=== PATIENT | female | born 1955 | race American Indian/Alaskan Native ===

== ENCOUNTER → 2016-09-06 | Outpatient (CLI) | payer MEDICAID ==
[~2016-09-06] MED LIST: ALBU17AE23 IH; ALPR.5T PO; ALPR0.5T22 PO; AMLO5TAB2 PO; ASP81CT PO; ASPI-9 PO; CEFU250T11 PO; CIME200T86 PO; CYCL10TA9 PO; DILT180C PO; DIPH25TA82 PO; HERB IH; HYDR-3720 PO; IBUP-15 PO; LANS30CA PO; NITR12SP6 TL; NITROGLYCERIN BU; SIMV20TA3 PO
--- OUTSIDE RECORDS SUMMARY | 2016-09-06 12:24 | XMS REPORT | Continuity of Care Document ---
Author Author [facility] Organization [facility] Address Unknown Phone Unavailable Care Team Providers Care Newspaper Subscription Solicitor Name Role Phone Virgilio Judd PCP [phone] Source Comments Some departments are not documenting in the electronic medical record. If you do not see the information that you expected, contact Release of Information in the Health Information Management department at [phone] for further assistance in locating additional records.[facility] Active Allergies and Adverse Reactions Allergen Noted Date Severity Reactions Comments Demerol 09/02/2010 UNKNOWN Grapefruit 07/02/2012 UNKNOWN Penicillins 09/02/2010 UNKNOWN Tetanus Vaccines And 09/02/2010 UNKNOWN Toxoid Current Medications Prescription Sig. Disp. Refills Start End Date Status Date gabapentin (NEURONTIN) Take 300 mg by mouth Active 300 mg PO tablet daily. gabapentin (NEURONTIN) Take 200 mg by mouth. Active 100 mg PO tablet alprazolam (XANAX) 0.5 mg Take 0.5 mg by mouth at Active PO tablet bedtime as needed. SULFAMETHOXAZOLE/TRIMETHO Take by mouth. Active PRIM (BACTRIM PO) Aspirin 81 mg PO Tab Take by mouth. Active nitroglycerin Take 1 [place] by mouth Active (NITROLINGUAL) 0.4 every 5 minutes as mg/dose TL translingual needed. spray CYCLOBENZAPRINE HCL Take by mouth. Active (FLEXERIL PO) albuterol (VENTOLIN HFA, Inhale 2 Puffs by mouth Active PROAIR HFA) 90 every 6 hours as needed. mcg/actuation inhaler Active Problems Not on file Social History Tobacco Use Types Packs/Day Years Used Date Current Every Day Smoker Cigarettes 0.3 Alcohol Use Drinks/Week oz/Week Comments Yes RARELY Last Filed Vital Signs Vital Sign Reading Time Taken Blood Pressure 120/80 10/15/2009 11:52 AM CDT Pulse 80 10/15/2009 11:52 AM CDT Temperature 36.7 C (98.1 F) 10/05/2009 11:53 AM CDT Respiratory Rate 16 10/05/2009 11:53 AM CDT Height 1.6 m (5' 3") 10/15/2009 11:52 AM CDT Weight 72.122 kg (159 lb) 10/15/2009 11:52 AM CDT Body Mass Index 28.17 10/15/2009 11:52 AM CDT Oxygen Saturation - - Plan of Care Health Maintenance Due Date Last Done Comments Physical (Comprehensive) 1963 Exam Pertussis Vaccine 1967 Tetanus Vaccine 1973 Cervical Cancer Screening 1977 Breast Cancer Screening 1996 Colorectal Cancer 2006 Screening Influenza Vaccine 03/03/2016 Results from Last 3 Months Not on file
[2016-09-06 14:03] LABS: BASOPHILS # (AUTO) 0.1 10^3/uL (0.0-0.1); BASOPHILS % (AUTO) 1 % (0-10); EOSINOPHILS # (AUTO) 0.1 10^3/uL (0.0-0.3); EOSINOPHILS % (AUTO) 2 % (0-10); LYMPHOCYTES # (AUTO) 3.2 X 10^3 (1.0-4.0); LYMPHOCYTES % (AUTO) 43 % (12-44); MEAN CORPUSCULAR HEMOGLOBIN 33 PG (25-34); MEAN CORPUSCULAR HGB CONC 35 G/DL (32-36); MEAN CORPUSCULAR VOLUME 96 FL (80-99); MONOCYTES # (AUTO) 0.4 X 10^3 (0.0-1.0); MONOCYTES % (AUTO) 6 % (0-12); NEUTROPHILS # (AUTO) 3.6 X 10^3 (1.8-7.8); NEUTROPHILS % (AUTO) 49 % (42-75); PLATELET COUNT 148 10^3/uL (130-400); RED BLOOD COUNT 4.98 10^6/uL (4.35-5.85); RED CELL DISTRIBUTION WIDTH 13.4 % (10.0-14.5); WHITE BLOOD COUNT 7.4 10^3/uL (4.3-11.0)
[2016-09-06 14:20] LABS: ALANINE AMINOTRANSFERASE 12 U/L (0-55); ANION GAP 9 MMOL/L (5-14); ASPARTATE AMINO TRANSFERASE 14 U/L (5-34); BILIRUBIN,TOTAL 0.4 MG/DL (0.1-1.0); BLOOD UREA NITROGEN 6 MG/DL (7-18); BUN/CREATININE RATIO 9; CALCIUM 9.1 MG/DL (8.5-10.1); CARBON DIOXIDE 27 MMOL/L (21-32); CHLORIDE 106 MMOL/L (98-107); CREATININE SERUM 0.68 MG/DL (0.60-1.30); GFR ESTIMATED > 60; GLUCOSE 80 MG/DL (70-105); MAGNESIUM 2.1 MG/DL (1.8-2.4); POTASSIUM 3.7 MMOL/L (3.6-5.0); SODIUM 142 MMOL/L (135-145); TOTAL PROTEIN 6.8 G/DL (6.4-8.2)
[2016-09-06 14:21] LABS: ERYTHROCYTE SEDIMENTATION RATE 9 MM/HR (0-30)
[2016-09-06 14:39] LABS: THYROID STIMULATING HORMONE 1.74 UIU/ML (0.35-4.94)
== END ==
LOC: RAD 12:21
PROVIDERS: ATTEND Internal Medicine Cardiovascular Disease
DX: R07.89 Other chest pain (principal); I25.10 Atherosclerotic heart disease of native coronary artery without angina pectoris; G89.29 Other chronic pain; J43.8 Other emphysema; E78.4 Other hyperlipidemia; I10 Essential (primary) hypertension; Z72.0 Tobacco use; R26.89 Other abnormalities of gait and mobility
CPT/HCPCS: 36415; 80053; 83735; 84443; 85025; 85652; 93923

== ENCOUNTER → 2018-05-21 | Outpatient (CLI) | payer MEDICAID | LOC: CARD 10:22 | PROVIDERS: ATTEND Internal Medicine Cardiovascular Disease | DX: R07.89 Other chest pain (principal); R06.02 Shortness of breath; R00.2 Palpitations; I25.10 Atherosclerotic heart disease of native coronary artery without angina pectoris; E78.5 Hyperlipidemia, unspecified; I10 Essential (primary) hypertension; Z72.0 Tobacco use | CPT/HCPCS: 93306 ==

== ENCOUNTER 2018-07-10 07:13 | Day surgery (SDC) | payer MEDICAID ==
[2018-07-10] VITALS (10 sets, daily range): BP systolic 129–149; BP diastolic 63–84
[~2018-07-10] VITALS: Ht 160 cm; Wt 73.9 kg
[2018-07-10] MEDS ORDERED: LIDOCAINE 1% INJ 20 ML 20 ML VIAL ONE (07:19)
[2018-07-10] MEDS ORDERED: HEParin (CATH LAB) 2,000 ML IV ONE (07:19)
[2018-07-10] MEDS ORDERED: NS IV 1000 ML 1,000 ML ONE (07:19)
[2018-07-10] MEDS ORDERED: NS IV 1000 ML 1,000 ML IV SCH (07:30)
[2018-07-10 07:47] LABS: HEMOGLOBIN 16.6 G/DL (11.5-16.0); RED BLOOD COUNT 5.04 10^6/uL (4.35-5.85); RED CELL DISTRIBUTION WIDTH 13.1 % (10.0-14.5)
[2018-07-10] MEDS ORDERED: PRD20T PO (07:47)
[2018-07-10] MEDS ORDERED: FLU QUADRIvalent (5+ YOA) 2018-2019 (AFLURIA) 0.5 ML IM ONE (08:00)
[2018-07-10 08:03] LABS: INR 0.9 (0.8-1.4); PROTHROMBIN TIME PATIENT 11.9 SEC (12.2-14.7)
[2018-07-10 08:08] LABS: ALANINE AMINOTRANSFERASE 16 U/L (0-55); ALBUMIN 4.3 GM/DL (3.2-4.5); ALKALINE PHOSPHATASE 123 U/L (40-136); BILIRUBIN,TOTAL 0.3 MG/DL (0.1-1.0); BUN/CREATININE RATIO 13; CALCIUM 9.4 MG/DL (8.5-10.1); CARBON DIOXIDE 25 MMOL/L (21-32); CHLORIDE 105 MMOL/L (98-107); CHOLESTEROL 208 MG/DL (< 200); CREATININE SERUM 0.69 MG/DL (0.60-1.30); GFR ESTIMATED > 60; GLUCOSE 115 MG/DL (70-105); HDL CHOLESTEROL 56 MG/DL (40-60); POTASSIUM 3.8 MMOL/L (3.6-5.0); SODIUM 140 MMOL/L (135-145); TOTAL PROTEIN 7.2 GM/DL (6.4-8.2); TRIGLYCERIDES 106 MG/DL (<150); VLDL CHOLESTEROL 21 MG/DL (5-40)
[2018-07-10] MEDS ORDERED: MIDAZOLAM 5 MG/5 ML (VERSED) VIAL ONE (08:19)
[2018-07-10] MEDS ORDERED: diphenhydrAMINE 50 MG/ML INJ (BENADRYL) ONE (08:20)
[2018-07-10] MEDS ORDERED: fentaNYL INJECTION 100 MCG/2 ML AMP ONE (08:20)
[2018-07-10] MEDS ORDERED: HEParin 1000 UNIT/ML (10ML VIAL) FOR BOLUS ONE (09:10)
[2018-07-10] MEDS ORDERED: NITRO DRIP 25000 MCG/D5W 0 ML IV ONE (09:10)
[2018-07-10] MEDS ORDERED: ADENOSINE 3 MG/1 ML (ADENOSCAN) 30ML VIAL IV ONE (09:10)
[2018-07-10] MEDS ORDERED: CLOPIDOGREL 300 MG (PLAVIX) TABLET PO ONE (09:44)
[2018-07-10] MEDS ORDERED: ASPIRIN 81 MG CHEW (CHILDREN'S ASA) ONE (09:44)
--- NOTE | 2018-07-10 10:43 | Cardiac Procedure Note-CS/ASA ---
Pre-Procedure Note Pre-Op Procedure Note H&P Reviewed The H&P was reviewed, patient examined and no changes noted. Date H&P Reviewed: Jul 10, 2018 Time H&P Reviewed: 08:45 Conscious Sedation Pre-Proced Time 08:45 ASA Score 3 For ASA 3 and 4: Consider anesthesia and medical clearance. Also, for patients with a history of failed moderate sedation consider anesthesia. Airway Lungs Heart ASA score ASA 1: a normal healthy patient ASA 2: a patient with a mild systemic disease (mid diabetes, controlled hypertension, obesity ASA 3: a patient with a severe systemic disease that limits activity (angina , COPD, prior Myocardial infarction) ASA 4: a patient with an incapacitating disease that is a constant threat to life (CHF, renal failure) ASA 5: a moribund patient not expected to survive 24 hrs. (ruptured aneurysm) ASA 6: a declared brain patient whose organs are being harvested. For emergent operations, add the letter E after the classification Mallampati Classification Grade 2 Sedation Plan Analgesia, Amnesia, Plan communicated to team members, Discussed options with patient/fam, Discussed risks with patient/fam The patient is an appropriate candidate to undergo the planned procedure, sedation, and anesthesia. The patient immediately re-assessed prior to indication. BETZY AL MD FACP FAC CCDS Jul 10, 2018 10:42
[2018-07-10] MEDS ORDERED: ALBUTEROL IH PRN (10:45)
[2018-07-10] MEDS ORDERED: diphenhydrAMINE 25 MG TAB (BENADRYL) PO PRN (10:45)
[2018-07-10] MEDS ORDERED: NITROGLYCERIN TL PRN (10:45)
[2018-07-10] MEDS ORDERED: PATIENT MAY USE OWN MEDS, ALL PO SCH (10:45)
[2018-07-10] MEDS ORDERED: CYCLOBENZAPRINE 10 MG (FLEXERIL) TAB PO PRN (10:45)
[2018-07-10] MEDS ORDERED: RT-ALBUTEROL SULF 2.5 MG/3 ML PRE-MIX VIAL IH PRN (11:15)
[2018-07-10] MEDS ORDERED: NITROGLYCERIN 0.4 MG SL TABS BTL 25'S SL PRN (11:15)
--- NOTE | 2018-07-10 11:21 | CARDIAC CATHETERIZATION ---
DATE OF SERVICE: 07/10/2018 CARDIAC CATHETERIZATION AND CORONARY INTERVENTION REPORT Rod Qiu 63-year-old lady, who has multiple coronary artery disease risk factors and recent symptoms suggestive of exertional angina. Symptoms have been progressive. Cardiac catheterization was carried out today after having obtained an informed consent. She was premedicated with steroids because of a history of contrast allergy. PROCEDURE: She was brought to the cardiac catheterization laboratory in a fasting state. Right groin was prepared and draped in the usual sterile fashion. Lidocaine 1% local anesthesia was usedd. Modified Seldinger technique was used to advance a 5-Panamanian sheath into the right femoral artery. A 5-Panamanian JL4 catheter was used for left coronary angiography. A 5-Panamanian JR4 catheter was used for right coronary angiography. A 5-Panamanian pigtail catheter was used for left heart catheterization and left ventricular angiography. FRACTIONAL FLOW RESERVE MEASUREMENT IN THE RIGHT CORONARY ARTERY: The right coronary artery was demonstrating 60% to 70% proximal stenosis. We carried out fractional flow reserve measurement to determine if this was hemodynamically significant. We exchanged the sheath over a wire for a 6-Panamanian sheath. We used a 6-Panamanian JR4 guide catheter with side holes. We used a Pressure Wire X. As we advanced the wire, it went out through one of the side holes, rather than the end hole. On trying to pull it back, the wire fractured. However, the fractured end of the wire remained firmly seated in the side hole and did not migrate. We were able to remove the whole apparatus, including all of the catheter and all of the wire. There was no distal embolization of the wire seen. We then used a 6-Panamanian JR4 guide catheter and a new Pressure Wire X, which we were able to advance through the end hole. Pressures were equalized. The pressure wire was then pulled back into the catheter and the catheter engaged the right coronary artery and the wire then was advanced across the lesion and the tip placed in the distal vessel. We gave adenosine 140 mcg per kilogram per minute for approximately 1 minute and 45 seconds. Fractional flow reserve was measured at 0.79, indicating that the stenosis was hemodynamically significant. The patient received 5000 units of intravenous heparin at the beginning of the fractional flow reserve measurement procedure. We kept the wire to carry out percutaneous intervention as described below. PERCUTANEOUS INTERVENTION TO THE RIGHT CORONARY ARTERY: We used a 6-Panamanian JR4 guide catheter with side holes that was already in place and Pressure Wire X, which was already in place. We had given 5000 units of intravenous heparin shortly before the interventional procedure. We advanced Xience Meme 3.5 x 12 mm stent to the lesion. This was carefully positioned to cover the entire lesion and the stent was deployed at 16 atmospheres, achieving a final stent lumen size of approximately 3.7 mm. Subsequent angiography revealed 0% residual stenosis at the previous site of approximately 70% stenosis and flow throughout the vessel was normal. The patient tolerated the procedure well. Angioplasty equipment was removed and angiography of the right femoral artery was carried out through the sheath. Mynx was used to achieve hemostasis. HEMODYNAMICS: Left ventricular end-diastolic pressure following coronary angiography was 14 mmHg. There was no significant pressure gradient on pullback across the aortic valve. Ascending aortic pressure was 129/74 with a mean of 100 mmHg. LEFT VENTRICULAR ANGIOGRAPHY: Left ventricular angiography was carried out in the right anterior oblique projection. Global left ventricular systolic function is normal. Left ventricular ejection fraction is 60% to 65%. There does not appear to be a significant mitral regurgitation. CORONARY ANGIOGRAPHY: Left main coronary artery: Left main coronary artery is free of significant disease. Left anterior descending artery has diffuse mild plaques. Left circumflex artery has diffuse mild plaques. Right coronary artery is dominant and had approximately 70% proximal stenosis and a fractional flow reserve across that was 0.79, indicating hemodynamic significance. Stenosis was stented with a Xience Meme 3.5 x 12 mm stent reducing the stenosis to 0% residual. CONCLUSIONS: 1. Coronary artery disease primarily consisting of 70% proximal stenosis of the right coronary artery with a fractional flow reserve of 0.79. This was successfully stented with a Xience Meme 3.5 x 12 mm stent. The rest of the coronary vessels have diffuse mild plaques. 2. Normal global left ventricular systolic function with ejection fraction of 60% to 65%. 3. No significant mitral regurgitation. 4. Mild elevation of left ventricular end-diastolic pressure. DISCUSSION AND RECOMMENDATIONS: We have advised her to refrain from tobacco or marijuana use. We have advised risk factor modification. Dual antiplatelet therapy is being continued. She is being hospitalized for overnight observation. Job ID: [id number] DocumentID: [id number] Dictated Date: 07/10/2018 09:59:27 Correction Warden Date: 07/10/2018 11:20:48 Dictated By: BETZY AL MD, MA, FACP, FACC, [facility]
[2018-07-10] MEDS: NS IV 1000 ML 1,000 ML IV SCH ×2 (13:47→22:33)
[2018-07-10] MEDS: ALPRAZolam 0.5 MG (XANAX) TAB PO PRN (20:18)
[2018-07-10] MEDS ORDERED: SIMvastatin 20 MG (ZOCOR) TAB PO SCH (21:00)
[2018-07-10] MEDS ORDERED: NON-FORMULARY MEDICATION 1 EA EA (Simvastatin 20 MG) PO SCH (21:00)
[2018-07-11] VITALS: BP 136/64
[2018-07-11] MEDS: ALPRAZolam 0.5 MG (XANAX) TAB PO PRN (01:15)
[2018-07-11 03:46] VITALS: BP 134/76
[2018-07-11 04:21] LABS: HEMOGLOBIN 13.9 G/DL (11.5-16.0); MEAN PLATELET VOLUME 11.4 FL (7.4-10.4); RED BLOOD COUNT 4.27 10^6/uL (4.35-5.85); RED CELL DISTRIBUTION WIDTH 12.6 % (10.0-14.5); WHITE BLOOD COUNT 9.2 10^3/uL (4.3-11.0)
[2018-07-11 04:44] LABS: BUN/CREATININE RATIO 17; CALCIUM 8.5 MG/DL (8.5-10.1); CARBON DIOXIDE 21 MMOL/L (21-32); CHLORIDE 108 MMOL/L (98-107); CREATININE SERUM 0.64 MG/DL (0.60-1.30); GFR ESTIMATED > 60; GLUCOSE 118 MG/DL (70-105); POTASSIUM 3.5 MMOL/L (3.6-5.0); SODIUM 139 MMOL/L (135-145)
[2018-07-11] MEDS: NS IV 1000 ML 1,000 ML IV SCH (05:54)
[2018-07-11] MEDS ORDERED: KCL 20 MEQ TAB (K-DUR) PO ONE (08:15)
[2018-07-11] MEDS ORDERED: CLOP75TA28 PO (08:19)
[2018-07-11] MEDS ORDERED: ASPI-999 PO (08:19)
--- NOTE | 2018-07-11 08:20 | Discharge Inst-Cardiology ---
Discharge Inst-Cardiac Discharge Medications New Medications: Aspirin (Aspirin) 81 Mg Tab.chew 81 MG PO DAILY for 90 Days, #90 TAB 3 Refills Clopidogrel Bisulfate (Clopidogrel) 75 Mg Tablet 75 MG PO DAILY for 90 Days, #90 TAB 3 Refills Continued Medications: Albuterol (Ventolin) 17 Gm Aerosol 2 PUFF IH QID PRN NEEDED FOR SHORTNESS OF BREATH Alprazolam (Xanax) 0.5 Mg Tablet 0.5 MG PO TID PRN NEEDED FOR ANXIETY Amlodipine Besylate (Amlodipine Besylate) 5 Mg Tablet 5 MG PO DAILY Cyclobenzaprine Hcl (Cyclobenzaprine Hcl) 10 Mg Tablet 10 MG PO TID PRN NEEDED FOR MUSCLE SPASMS Diphenhydramine Hcl (Diphenhydramine 25 Mg) 25 Mg Tablet 25 MG PO BID PRN NEEDED FOR RASH Nitroglycerin (Nitroglycerin) 12 Gm [place] 1 - 2 SPRAYS TL UD PRN 1-2 sprays onto or under tongue every 3-5 minutes for maximum of 3 doses in 15 minutes NEEDED FOR CHEST PAIN Simvastatin (Simvastatin) 20 Mg Tablet 20 MG PO HS Discontinued Medications: Aspirin (Baby Aspirin Chewable Tablet) 81 Mg Chew 81 MG PO EVERY OTHER DAY Prednisone (Prednisone) 20 Mg Tab 20 MG PO DAILY, #22 TAB Take 3 tabs(60mg)daily,decrease by 1/2 tab(10mg)every other day. BETZY AL MD FACP FAC CCDS Jul 11, 2018 08:20
--- NOTE | 2018-07-11 08:21 | Discharge Inst-Post CATH ---
Discharge Inst-CATH/EP Post Cardiac Cath/EP D/C Inst Follow Up/Plan F/u with Dr Zapata next week No smoking CARDIAC CATH DISCHARGE INSTRUCTIONS *Hold Metformin for 48 hours post heart cath. ACTIVITY * Go Home directly and rest. * Limit activity of the leg (or wrist if it was used) for 7 days including aerobics, swimming, jogging, bicycling, etc. * Restrict stair-climbing for 7 days if possible, if not, climb up with your non -cath leg, then bring together on the same step. * Avoid lifting, pushing, pulling or excessive movement of the affected extremity for 7 days. * Customary sexual activity may be resumed after 2 days-use caution not to use a position that strains or causes pain to the affected extremity. * No driving for 24 hours. * NO SMOKING. * Avoid straining for bowel movements for 7 days. * Gentle walking on level ground is allowed. * Returning to work will depend on the type of procedure and the results. Your doctor will discuss this with you. CALL YOUR DOCTOR FOR ANY OF THE FOLLOWING: *If bleeding from the puncture site occurs- Apply gentle pressure to site with clean cloth and call your doctor or EMS. * If a knot or lump forms under the skin, increases in size, or causes pain. * If bruising appears to be worsening or moving further down your leg instead of disappearing. * Temperature above 101 F. CARE OF YOUR GROIN INCISION; * Bruising or purple discoloration of the skin near the puncture site is common. * You may shower only, no bathtub bathing for 5 days. Be careful to avoid slipping as your leg may feel stiff. * If a closure device was used on your femoral artery, please see the attached guide regarding care of the device and your leg. * Leave the dressing on, until removed by office staff. CARE OF YOUR WRIST INCISION; * Bruising or purple discoloration of the skin near the puncture site is common. * You may shower. * DO NOT submerge wrist. * Leave dressing on, until removed by office staff.. BETZY ZAPATA MD [facility] CCDS Jul 11, 2018 08:21
--- NOTE | 2018-07-11 08:27 | Progress Note-Cardiology ---
Cardiology SOAP Progress Note Subjective: No cp or palp or syncope No shortness of breath at rest Had had a "sluggish" feeling prior to cath/intervention. This feeling has now resolved No groin or leg discomfort No focal weakness or visual disturbances Feels well Wishes to go home Objective: I&O/Vital Signs 07/11/18 07/11/18 07/11/18 07/11/18 00:00 00:00 00:00 01:00 Temp 98.6 Pulse 90 91 Resp 26 B/P (MAP) 136/64 (88) Pulse Ox 100 99 O2 Delivery Room Air Room Air 07/11/18 07/11/18 03:46 04:00 Temp 97.3 Pulse 77 Resp 18 B/P (MAP) 134/76 (95) Pulse Ox 99 99 O2 Delivery Room Air Room Air 07/11/18 00:00 Intake Total 270 ml Output Total 200 ml Balance 70 ml Weight (Pounds): 163 Weight (Ounces): 0.0 Weight (Calculated Kilograms): 73.421941 Condition: DP/PT pulses palpable Bruising: mild bruising Constitutional: AAO x 3, well-developed, well-nourished Respiratory: No accessory muscle use; lungs clear to percussion, lungs clear to auscultation Cardiovascular: regular rate-rhythm, S1 and S2, systolic murmur (faint DOM at card base) Gastrointestional: No tender; soft; No guarding, No rebound; audible bowel sounds Extremities: No clubbing, No cyanosis, No significant edema Neurologic/Psychiatric: oriented x 3, grossly intact, power is 5/5 both on sides Skin: No rash on exposed areas, No ulcerations on exposed areas Results/Procedures: Labs Laboratory Tests 07/11/18 03:25: White Blood Count 9.2, Red Blood Count 4.27L, Hemoglobin 13.9, Hematocrit 41, Mean Corpuscular Volume 96, Mean Corpuscular Hemoglobin 33, Mean Corpuscular Hemoglobin Concent 34, Red Cell Distribution Width 12.6, Platelet Count 136, Mean Platelet Volume 11.4H, Sodium Level 139, Potassium Level 3.5L, Chloride Level 108H, Carbon Dioxide Level 21, Anion Gap 10, Blood Urea Nitrogen 11, Creatinine 0.64, Estimat Glomerular Filtration Rate > 60, BUN/Creatinine Ratio 17, Glucose Level 118H, Calcium Level 8.5 Laboratory Tests 07/10/18 07:30 07/11/18 03:25 A/P: Assessment: Coronary artery disease. Card cath of 07/10/18 showed approx 70% proximal stenosis of the right coronary artery with a fractional flow reserve of 0.79. This was successfully stented with a Xience Meme 3.5 x 12 mm stent. The rest of the coronary vessels had diffuse mild plaques. Normal global left ventricular systolic function with ejection fraction of 60% to 65%. Mild elevation of left ventricular end-diastolic pressure Echo of 05-21-18 shows LVEF of 60-65%, no valvular heart disease, PASP approx 25 mmHg Chronic tobacco use and h/o marijuana use Hypertension Hyperlipidemia, being treated with simvastatin Mild alkaline phosphatase elevation, chronic, followed by pcp Chronic back and joint discomfort Adrenal mass, relatively chronic, for which she is following with an woods boss at [facility] in [place], [place], and by Dr Dumont, her pcp Chronic obstructive pulmonary disease with hilar lymphadenopathy, for which she has followed with the Pulm Service at [facility] History of bladder reconstructive surgery in early 1960s Bilateral leg swelling, likely related to venous insufficiency and calcium channel camila therapy Segmental pressures on 09/06/16 did not indicate any significant leg arterial disease Plan: * We again discussed in detail the findings of card cath and the procedures undertaken on 07/10/18, including the fracture of Pressure Wire X (that we were able to retrieve and remove completely from her circulation w/o any complications) * We discussed the rationale for coronary stenting (hemodynamically significant lesion on FFR measurement) * We have discussed the importance of DAPT and the need to be compliant with these and all other meds * We discussed the rationale and pros and cons of her meds, and have advised compliance * We have advised immediate and complete smoking cessation * We have advised close outpatient f/u for now BETZY AL MD FACP [facility] CCDS Jul 11, 2018 08:27
[2018-07-11 08:49] VITALS: BP 146/76
[2018-07-11] MEDS ORDERED: ASPIRIN 81 MG CHEW (CHILDREN'S ASA) PO SCH (09:00)
[2018-07-11] MEDS ORDERED: CLOPIDOGREL 75 MG (PLAVIX) TABLET PO SCH (09:00)
[2018-07-11] MEDS ORDERED: amLODIPine 5 MG (NORVASC) TAB PO SCH (09:00)
== END 2018-07-11 10:20 | disposition home or self-care (01) ==
LOC: CATH 07:13 → ICU 10:20 → CATH 07-11 10:20
PROVIDERS: ATTEND Internal Medicine Cardiovascular Disease
DX: I25.10 Atherosclerotic heart disease of native coronary artery without angina pectoris (principal); I10 Essential (primary) hypertension; E78.5 Hyperlipidemia, unspecified; J44.9 Chronic obstructive pulmonary disease, unspecified; Z87.891 Personal history of nicotine dependence; M79.89 Other specified soft tissue disorders; E27.9 Disorder of adrenal gland, unspecified
CPT/HCPCS: 36415; 80048; 80053; 80061; 85027; 85610; 85730; 87081; 93005; 93458

== ENCOUNTER 2019-04-30 07:19 | Day surgery (SDC) | payer MEDICAID ==
[2019-04-30] VITALS (9 sets, daily range): BP systolic 131–157; BP diastolic 54–100
[~2019-04-30] VITALS: Ht 157 cm; Wt 66.0 kg
[~2019-04-30 07:19] MED LIST changes: +ASPI-999 PO; +CLOP75TA28 PO; +PRD20T PO
[2019-04-30] MEDS ORDERED: LIDOCAINE 1% INJ 20 ML 20 ML VIAL ONE (07:24)
[2019-04-30] MEDS ORDERED: NS IV 1000 ML 1,000 ML ONE (07:24)
[2019-04-30] MEDS ORDERED: HEParin (CATH LAB) 2,000 ML IV ONE (07:24)
[2019-04-30] MEDS ORDERED: NS IV 1000 ML 1,000 ML IV SCH ×2 (07:30→09:32)
[2019-04-30 07:48] LABS: HEMOGLOBIN 17.2 G/DL (11.5-16.0); RED CELL DISTRIBUTION WIDTH 13.3 % (10.0-14.5); WHITE BLOOD COUNT 5.9 10^3/uL (4.3-11.0)
[2019-04-30] MEDS ORDERED: SIMV20TA3 PO (08:04)
[2019-04-30] MEDS ORDERED: RT-ALBUINH INH (08:04)
[2019-04-30] MEDS ORDERED: DIPH25CA6 PO (08:04)
[2019-04-30] MEDS ORDERED: CYCL10TA9 PO (08:04)
[2019-04-30] MEDS ORDERED: ASPI-983 PO (08:04)
[2019-04-30] MEDS ORDERED: CLOP75TA69 PO (08:04)
[2019-04-30] MEDS ORDERED: NITR4.9S6 TL (08:04)
[2019-04-30] MEDS ORDERED: ALPR0.5T PO (08:05)
[2019-04-30] MEDS ORDERED: ALPR0.5T7 PO (08:05)
[2019-04-30] MEDS ORDERED: CHOL200059 PO (08:07)
[2019-04-30] MEDS ORDERED: NITR0.4T39 SL (08:07)
[2019-04-30] MEDS ORDERED: CHOL500049 PO (08:07)
[2019-04-30 08:13] LABS: ALANINE AMINOTRANSFERASE 11 U/L (0-55); ALBUMIN 4.4 GM/DL (3.2-4.5); ALKALINE PHOSPHATASE 129 U/L (40-136); BILIRUBIN,TOTAL 0.3 MG/DL (0.1-1.0); BUN/CREATININE RATIO 16; CALCIUM 9.7 MG/DL (8.5-10.1); CARBON DIOXIDE 22 MMOL/L (21-32); CHLORIDE 104 MMOL/L (98-107); CHOLESTEROL 255 MG/DL (< 200); CREATININE SERUM 0.76 MG/DL (0.60-1.30); GFR ESTIMATED > 60; GLUCOSE 149 MG/DL (70-105); HDL CHOLESTEROL 54 MG/DL (40-60); POTASSIUM 4.3 MMOL/L (3.6-5.0); SODIUM 140 MMOL/L (135-145); TOTAL PROTEIN 7.6 GM/DL (6.4-8.2); TRIGLYCERIDES 53 MG/DL (<150); VLDL CHOLESTEROL 11 MG/DL (5-40)
[2019-04-30 08:18] LABS: INR 0.9 (0.8-1.4); PROTHROMBIN TIME PATIENT 12.5 SEC (12.2-14.7)
[2019-04-30] MEDS ORDERED: MIDAZOLAM 5 MG/5 ML (VERSED) VIAL ONE (08:23)
[2019-04-30] MEDS ORDERED: fentaNYL INJECTION 100 MCG/2 ML AMP ONE ×2 (08:24→08:50)
[2019-04-30] MEDS ORDERED: HEParin 1000 UNIT/ML (10ML VIAL) FOR BOLUS ONE (08:24)
[2019-04-30] MEDS ORDERED: diphenhydrAMINE 50 MG/ML INJ (BENADRYL) ONE (08:35)
--- NOTE | 2019-04-30 09:33 | Cardiac Procedure Note-CS/ASA ---
Pre-Procedure Note Pre-Op Procedure Note H&P Reviewed The H&P was reviewed, patient examined and no changes noted. Date H&P Reviewed: Apr 30, 2019 Time H&P Reviewed: 08:40 Conscious Sedation Pre-Proced Time 08:40 ASA Score 3 For ASA 3 and 4: Consider anesthesia and medical clearance. Also, for patients with a history of failed moderate sedation consider anesthesia. Airway Lungs Heart ASA score ASA 1: a normal healthy patient ASA 2: a patient with a mild systemic disease (mid diabetes, controlled hypertension, obesity ASA 3: a patient with a severe systemic disease that limits activity (angina, COPD, prior Myocardial infarction) ASA 4: a patient with an incapacitating disease that is a constant threat to life (CHF, renal failure) ASA 5: a moribund patient not expected to survive 24 hrs. (ruptured aneurysm) ASA 6: a declared brain- patient whose organs are being harvested. For emergent operations, add the letter E after the classification Mallampati Classification Grade 2 Sedation Plan Analgesia, Amnesia, Plan communicated to team members, Discussed options with patient/fam, Discussed risks with patient/fam The patient is an appropriate candidate to undergo the planned procedure, sedation, and anesthesia. The patient immediately re-assessed prior to indication. BETZY AL MD FACP FAC CCDS Apr 30, 2019 09:33 POS
--- NOTE | 2019-04-30 09:43 | Discharge Inst-Cardiology ---
Discharge Inst-Cardiac Discharge Medications Continued Medications: Albuterol Sulfate (Ventolin Hfa) 1 Puff Puff 2 PUFF INH Q4H PRN for SHORTNESS OF BREATH, PUFF Alprazolam (Alprazolam) 0.5 Mg Tablet 1 MG PO HS, TAB Alprazolam (Xanax) 0.5 Mg Tablet 0.5 MG PO DAILY PRN for ANXIETY, TAB Aspirin (Aspirin EC) 81 Mg Tablet.dr 81 MG PO DAILY, TAB Cholecalciferol (Vitamin D3) (Vitamin D-3) 2,000 Unit Tablet 2000 UNIT PO, TAB Cholecalciferol (Vitamin D3) (Vitamin D3) 50,000 Unit Capsule 49397 UNIT PO WEEK, CAP Clopidogrel Bisulfate (Plavix) 75 Mg Tablet 75 MG PO DAILY, TAB Cyclobenzaprine HCl (Cyclobenzaprine HCl) 10 Mg Tablet 10 MG PO TID PRN for MUSCLE SPASMS, TAB Diphenhydramine HCl (Diphenhydramine HCl) 25 Mg Capsule 25 MG PO Q6H PRN for RASH, CAP Nitroglycerin (Nitroglycerin) 4.9 Gm [place] 1-2 SPRAYS TL EVERY 5 MIN PRN for CHEST PAIN, SPRAY Nitroglycerin (Nitroglycerin) 0.4 Mg Tab.subl 0.4 MG SL UD PRN for CHEST PAIN, TAB Simvastatin (Simvastatin) 20 Mg Tablet 20 MG PO WEEK, TAB Orders-Post D/C & Referrals Pneu Vac Indicated: Yes BETZY AL MD FACP FAC CCDS Apr 30, 2019 09:43 POS
--- NOTE | 2019-04-30 09:44 | Discharge Inst-Post CATH ---
Discharge Inst-CATH/EP Post Cardiac Cath/EP D/C Inst Follow Up/Plan F/u with Dr Zapata in two weeks NO SMOKING ACTIVITY * Go Home directly and rest. * Limit activity of the leg (or wrist if it was used) for 7 days including aerobics, swimming, jogging, bicycling, etc. * Restrict stair-climbing for 7 days if possible, if not, climb up with your non-cath leg, then bring together on the same step. * Avoid lifting, pushing, pulling or excessive movement of the affected extremity for 7 days. * Customary sexual activity may be resumed after 2 days-use caution not to use a position that strains or causes pain to the affected extremity. * No driving for 24 hours. * NO SMOKING. * Avoid straining for bowel movements for 7 days. * Gentle walking on level ground is allowed. * Returning to work will depend on the type of procedure and the results. Your doctor will discuss this with you. CALL YOUR DOCTOR FOR ANY OF THE FOLLOWING: *If bleeding from the puncture site occurs- Apply gentle pressure to site with clean cloth and call your doctor or EMS. * If a knot or lump forms under the skin, increases in size, or causes pain. * If bruising appears to be worsening or moving further down your leg instead of disappearing. * Temperature above 101 F. CARE OF YOUR GROIN INCISION; * Bruising or purple discoloration of the skin near the puncture site is common. * You may shower only, no bathtub bathing for 5 days. Be careful to avoid slipping as your leg may feel stiff. * If a closure device was used on your femoral artery, please see the attached guide regarding care of the device and your leg. * Leave dressing on FOR 24 hours. CARE OF YOUR WRIST INCISION; * Bruising or purple discoloration of the skin near the puncture site is common. * You may shower. * DO NOT submerge wrist. * Leave dressing on FOR 24 hours. BETZY ZAPATA MD [facility] CCDS Apr 30, 2019 09:44 POS
[2019-04-30] MEDS ORDERED: PATIENT MAY USE OWN MEDS, ALL PO SCH (09:45)
--- NOTE | 2019-04-30 09:57 | NUR ---
SPOKE WITH PT WELL CALLING [facility] [place] [facility]. THE PT WAS ABLE TO TELL ME HOW/WHEN SHE TAKES HER MEDS. THE FOLLOWING ARE FILL DATES FROM [facility]: 04-01-2019 PLAVIX #/DS 04-08-2019 XANAX NEITHER THE [facility] [place] HAD RECORD OF SIMVASTATIN, HOWEVER THE PT SAYS SHE ONLY TAKES ONCE WEEKLY SO IT MAY BE AN OLD RX SHE HAS. OTC MEDS: VITAMIN D BENADRYL [id number]
--- NOTE | 2019-04-30 13:20 | CARDIAC CATHETERIZATION ---
DATE OF SERVICE: 04/30/2019 CARDIAC CATHETERIZATION AND PERIPHERAL ANGIOGRAPHY REPORT The patient is a 63-year-old lady, who is known to have coronary artery disease and has previously had coronary stenting. She has been experiencing symptoms that are suggestive of recurrent angina. She also has symptoms consistent with bilateral leg claudication. Cardiac catheterization and peripheral angiography were recommended. Informed consent was obtained. DESCRIPTION OF PROCEDURE: She was brought to the cardiac catheterization laboratory in a fasting state. Right groin was prepared and draped in the usual sterile fashion. A 1% lidocaine with local anesthesia. Modified Seldinger technique used to advance a 5-[place] sheath in right femoral artery, 5-[place] JL4 catheter was used for left coronary angiography, 5-[place] JR4 catheter was used for right coronary angiography, 5-[place] pigtail catheter was used for left heart catheterization, left ventricular angiography. Pigtail was pulled back to the abdominal aorta. The pigtail was placed at the level of L1. Abdominal aortic angiography was performed. The pigtail catheter was then pulled distally to just above the aortoiliac bifurcation. Bilateral leg artery angiography was performed with runoff down to the level of the ankles. Pigtail was removed. Angiography of the right femoral artery was carried through the sheath. Mynx was used to achieve hemostasis. HEMODYNAMICS: Left ventricular end-diastolic pressure following coronary angiography was 15 mmHg. There is no significant pressure gradient on pullback across the aortic valve. Ascending aortic pressure was 142/80 with a mean 86 mmHg. CORONARY ANGIOGRAPHY: Coronary calcification is present. Left main coronary artery does not exhibit significant obstructive disease. Left anterior descending artery has 30% proximal and mid vessel stenosis. First diagonal branch, left anterior descending artery has 60% ostial stenosis. There is a relatively small branch. Left circumflex artery has diffuse mild plaques. Right coronary artery has a patent stent in its proximal portion. This is known to be Xience Meme 3.5 x 12 mm stent that was placed in 07/2018. ABDOMINAL AORTIC ANGIOGRAPHY: Abdominal aortic angiography did not indicate any abdominal aortic aneurysm or dissection. Renal arteries are seen and do not exhibit significant disease. Aortoiliac bifurcation does not exhibit significant obstructive disease. BILATERAL LEG ARTERY ANGIOGRAPHY: Bilateral leg artery angiography does not indicate any significant obstructive disease of the iliac arteries, femoral arteries, popliteal arteries, or the distal (trifurcation) vessels on either side. CONCLUSIONS: 1. Mild to moderate coronary artery disease. 2. Patent stent in the right coronary artery known to be Meme 3.5 x 12 mm stent that was placed in 07/2018. 3. No significant renal artery stenosis. 4. No significant peripheral arterial disease involving the lower limbs. DISCUSSION AND RECOMMENDATIONS: Based on results of the study, it appears appropriate to continue a conservative approach. Risk factor modification has been reviewed. Outpatient followup is advised. Job ID: [id number] DocumentID: [id number] Dictated Date: 04/30/2019 09:28:41 [facility] Date: 04/30/2019 13:19:36 Dictated By: BETZY AL MD, MA, FACP, FACC, MTDD
== END 2019-04-30 13:00 | disposition home or self-care (01) ==
LOC: CATH 07:19 → SDC 09:47 → CATH 13:00
PROVIDERS: ATTEND Internal Medicine Cardiovascular Disease
DX: I70.213 Atherosclerosis of native arteries of extremities with intermittent claudication, bilateral legs (principal); E78.5 Hyperlipidemia, unspecified; G89.29 Other chronic pain; M54.9 Dorsalgia, unspecified; J44.9 Chronic obstructive pulmonary disease, unspecified; I10 Essential (primary) hypertension; F17.210 Nicotine dependence, cigarettes, uncomplicated; F12.10 Cannabis abuse, uncomplicated; Z95.1 Presence of aortocoronary bypass graft; Z88.0 Allergy status to penicillin; Z88.7 Allergy status to serum and vaccine; Z88.8 Allergy status to other drugs, medicaments and biological substances; Z91.048 Other nonmedicinal substance allergy status; Z79.82 Long term (current) use of aspirin; Z79.02 Long term (current) use of antithrombotics/antiplatelets; Z91.041 Radiographic dye allergy status; Z82.49 Family history of ischemic heart disease and other diseases of the circulatory system; Z82.3 Family history of stroke
CPT/HCPCS: 36415; 75625; 75716; 80053; 80061; 85027; 85610; 85730; 87081; 93005; 93458

== ENCOUNTER 2019-12-12 12:53 | Emergency (ER) | payer MEDICARE, MEDICAID ==
[~2019-12-12] VITALS: Ht 160 cm; Wt 65.0 kg
[~2019-12-12 12:53] MED LIST changes: +ALPR0.5T PO; +ALPR0.5T7 PO; +ASPI-983 PO; +CHOL200059 PO; +CHOL500049 PO; +CLOP75TA69 PO; +DIPH25CA48 PO; +NITR0.4T39 SL; +NITR4.9S6 TL; +RT-ALBUINH INH; +SIMV20TA26 PO
--- NOTE | 2019-12-12 13:17 | ED Cardiac General ---
History of Present Illness General Chief Complaint: Cardiac/General Problems Stated Complaint: HIGH BLOOD PRESSURE Nursing Triage Note: PT REPORTS HER BLOOD PRESSURE HAS BEEN UP AND DOWN ALL NIGHT AND SHE HAS BEEN TAKING IT ABOUT EVERY HOUR TO TWO HOURS. Source: patient Exam Limitations: no limitations History of Present Illness Date Seen by Provider: Dec 12, 2019 Time Seen by Provider: 13:00 Initial Comments Patient is a 64-year-old female with history of migraines, CAD and hypertension he presents with numbness around lips and left leg burning. Periorbital numbness was first appreciated at 4:00 this morning. Last known normal was after midnight. Patient also reports intermittent left leg burning for the past several days with history of radiculopathy. Patient denies headache, tinnitus, neck pain, change in vision, difficulty swallowing, changes speech, focal extremity weakness or loss of balance. Patient states she was unable since this morning and has been checking her blood pressure routinely with elevated blood pressures the 180s over 100s. Patient is compliant with her medications including Plavix. She current smoker but has decreased to a half a pack daily. Timing/Duration: 4-6 hours Severity: mild Location: other Prior CP/Workup: other Modifying Factors: improves with other (anxiety) Associated Systoms: Other Allergies and Home Medications Allergies Coded Allergies: Grapefruit (Verified Allergy, Unknown, 08/22/08) IV Dye, Iodine Containing (Verified Allergy, Unknown, 08/22/08) Penicillins (Verified Allergy, Unknown, 08/22/08) Tetanus (Verified Allergy, Unknown, 08/22/08) Home Medications Albuterol Sulfate 1 Puff Puff, 2 PUFF INH Q4H PRN for SHORTNESS OF BREATH, (Reported) Alprazolam 0.5 Mg Tablet, 1 MG PO HS, (Reported) Alprazolam 0.5 Mg Tablet, 0.5 MG PO DAILY PRN for ANXIETY, (Reported) Aspirin 81 Mg Tablet.dr, 81 MG PO DAILY, (Reported) Cholecalciferol (Vitamin D3) 50,000 Unit Capsule, 50,000 UNIT PO WEEK, (Reported) Clopidogrel Bisulfate 75 Mg Tablet, 75 MG PO DAILY, (Reported) Cyclobenzaprine HCl 10 Mg Tablet, 10 MG PO TID PRN for MUSCLE SPASMS, (Reported) Diphenhydramine HCl 25 Mg Capsule, 25 MG PO Q6H PRN for RASH, (Reported) Nitroglycerin 4.9 Gm [place], 1-2 SPRAYS TL EVERY 5 MIN PRN for CHEST PAIN, (Reported) Nitroglycerin 0.4 Mg Tab.subl, 0.4 MG SL UD PRN for CHEST PAIN, (Reported) Simvastatin 20 Mg Tablet, 20 MG PO WEEK, (Reported) Patient Home Medication List Home Medication List Reviewed: Yes Review of Systems Review of Systems Constitutional: see HPI EENTM: See HPI Respiratory: See HPI Cardiovascular: See HPI Gastrointestinal: See HPI Genitourinary: See HPI Musculoskeletal: see HPI Skin: see HPI Psychiatric/Neurological: See HPI, Anxiety Endocrine: See HPI Hematologic/Lymphatic: See HPI Past Fhvxppy-Bdgjvp-Izczkr Hx Patient Social History Alcohol Use: Denies Use Recreational Drug Use: Yes Drug of Choice: MARIJUANA Smoking Status: Current Everyday Smoker Type Used: Cigarettes 2nd Hand Smoke Exposure: Yes Recent Foreign Travel: No Contact w/Someone Who Travel: No Recent Infectious Disease Expo: No Recent Hopitalizations: No Physical Abuse: No Sexual Abuse: No Mistreated: No Fear: No Seasonal Allergies Seasonal Allergies: No Past Medical History Surgeries: Yes (R SIDE FACE RESCONSTRUCIONT, BACK FUSION, KIDNEY,KNEE MONSERRAT ORTHO) Appendectomy, Coronary Stent Respiratory: Yes (COPD,EMPHYSEMA) COPD, Emphysema Currently Using CPAP: No Currently Using BIPAP: No Cardiac: Yes Coronary Artery Disease, High Cholesterol, Hypertension Neurological: Yes Seizure Disorder, Stroke Genitourinary: Yes Kidney Infection Gastrointestinal: Yes (REFLUX) Gastroesophageal Reflux Musculoskeletal: No Endocrine: No (BLOOOD SUGAR DROPS AT 0530) HEENT: No Cancer: No (HAS BEEN HAVING LUNG BIOPSYS, ALL BENIGN THUS FAR) Psychosocial: Yes Anxiety Integumentary: No Blood Disorders: No Adverse Reaction/Blood Tranf: No Physical Exam Vital Signs Vital Signs - First Documented 12/12/19 13:05 Temp 36.9 Pulse 58 Resp 18 B/P (MAP) 159/84 (109) Pulse Ox 95 O2 Delivery Room Air Capillary Refill : Less Than 3 Seconds Height, Weight, BMI Height: 5'3.00" Weight: 163lbs. 0.0oz. [id number]; 25.00 BMI Method: General Appearance: No Apparent Distress, WD/WN HEENT: PERRL/EOMI, Pharynx Normal Neck: Supple Respiratory: Lungs Clear, Normal Breath Sounds Cardiovascular: Regular Rate, Rhythm Extremity: Normal Capillary Refill, Normal Inspection Neurologic/Psychiatric: Alert, Oriented x3, Normal Mood/Affect, digital archivist II-XII Norm as Tested, Other (stroke score 0) Focused Exam Sepsis Stage: Ruled Out Progress/Results/Core Measures Results/Orders Lab Results Laboratory Tests Test 12/12/19 13:15 Range/Units White Blood Count 8.8 4.3-11.0 10^3/uL Red Blood Count 5.25 4.35-5.85 10^6/uL Hemoglobin 17.2 H 11.5-16.0 G/DL Hematocrit 50 35-52 % Mean Corpuscular Volume 95 80-99 FL Mean Corpuscular Hemoglobin 33 25-34 PG Mean Corpuscular Hemoglobin Concent 34 32-36 G/DL Red Cell Distribution Width 12.6 10.0-14.5 % Platelet Count 186 130-400 10^3/uL Mean Platelet Volume 11.1 H 7.4-10.4 FL Neutrophils (%) (Auto) 70 42-75 % Lymphocytes (%) (Auto) 24 12-44 % Monocytes (%) (Auto) 4 0-12 % Eosinophils (%) (Auto) 1 0-10 % Basophils (%) (Auto) 1 0-10 % Neutrophils # (Auto) 6.1 1.8-7.8 X 10^3 Lymphocytes # (Auto) 2.1 1.0-4.0 X 10^3 Monocytes # (Auto) 0.3 0.0-1.0 X 10^3 Eosinophils # (Auto) 0.1 0.0-0.3 10^3/uL Basophils # (Auto) 0.1 0.0-0.1 10^3/uL Prothrombin Time 12.2 12.2-14.7 SEC INR Comment 0.9 0.8-1.4 Activated Partial Thromboplast Time 31 24-35 SEC Sodium Level 140 135-145 MMOL/L Potassium Level 4.0 3.6-5.0 MMOL/L Chloride Level 102 98-107 MMOL/L Carbon Dioxide Level 23 21-32 MMOL/L Anion Gap 15 H 5-14 MMOL/L Blood Urea Nitrogen 12 7-18 MG/DL Creatinine 0.62 0.60-1.30 MG/DL Estimat Glomerular Filtration Rate > 60 BUN/Creatinine Ratio 19 Glucose Level 113 H 70-105 MG/DL Calcium Level 9.6 8.5-10.1 MG/DL Corrected Calcium 9.4 8.5-10.1 MG/DL Magnesium Level 2.0 1.6-2.4 MG/DL Total Bilirubin 0.3 0.1-1.0 MG/DL Aspartate Amino Transf (AST/SGOT) 14 5-34 U/L Alanine Aminotransferase (ALT/SGPT) 7 0-55 U/L Alkaline Phosphatase 149 H 40-136 U/L Total Protein 7.3 6.4-8.2 GM/DL Albumin 4.2 3.2-4.5 GM/DL My Orders Orders - ESPERANZA PINZON DO Cbc With Automated Diff (12/12/19 13:09) Comprehensive Metabolic Panel (12/12/19 13:09) Ekg Tracing (12/12/19 13:09) Protime With Inr (12/12/19 13:09) Partial Thromboplastin Time (12/12/19 13:09) Magnesium (12/12/19 13:09) Chest 1 View Ap/Pa Only (12/12/19 13:09) Ct Head Wo (12/12/19 13:09) Vital Signs/I&O 12/12/19 13:05 Temp 36.9 Pulse 58 Resp 18 B/P (MAP) 159/84 (109) Pulse Ox 95 O2 Delivery Room Air Blood Pressure Mean: 109 Departure Communication (Admissions) Patient clinically anxious with lip numbness. Blood pressure improved without treatment in the emergency department. CT and labs nonacute. Question apical lung mass on chest x-ray. No chest pain or shortness of breath. Hospital admission/transfer to [place] [facility] for stroke evaluation. Patient declines requests discharge home. Will maintain on blood pressure medication and Plavix with recommendations follow-up with electrical apprentice and local PCP. Patient's instructed of abnormal chest x-ray indeed to obtain short-term follow-up to rule out underlying mass patient verbalizes understanding. Discharge instructions prior to departure. Impression Primary Impression: Accelerated hypertension Additional Impressions: TIA (transient ischemic attack) Abnormal chest xray Disposition: HOME, SELF-CARE Condition: Improved Departure-Patient Inst. Referrals: SISSY COOMBS MD (PCP/Family) Primary Care Physician Patient Instructions: Transient Ischemic Attack, High Blood Pressure in Adults Add. Discharge Instructions: Please continue home medications and follow-up with local primary care doctor for reevaluation of strokelike symptoms and abnormal chest x-ray. Follow-up Dr. Santos in office regarding high blood pressure. Return to ED if he develop any new or concerning symptoms.. All discharge instructions reviewed with patient and/or family. Voiced understanding. ESPERANZA PINZON DO Dec 12, 2019 13:17
[2019-12-12 13:35] LABS: BASOPHILS # (AUTO) 0.1 10^3/uL (0.0-0.1); BASOPHILS % (AUTO) 1 % (0-10); EOSINOPHILS # (AUTO) 0.1 10^3/uL (0.0-0.3); EOSINOPHILS % (AUTO) 1 % (0-10); HEMATOCRIT 50 % (35-52); HEMOGLOBIN 17.2 G/DL (11.5-16.0); LYMPHOCYTES # (AUTO) 2.1 X 10^3 (1.0-4.0); LYMPHOCYTES % (AUTO) 24 % (12-44); MEAN CORPUSCULAR HEMOGLOBIN 33 PG (25-34); MEAN CORPUSCULAR HGB CONC 34 G/DL (32-36); MEAN CORPUSCULAR VOLUME 95 FL (80-99); MEAN PLATELET VOLUME 11.1 FL (7.4-10.4); MONOCYTES # (AUTO) 0.3 X 10^3 (0.0-1.0); MONOCYTES % (AUTO) 4 % (0-12); NEUTROPHILS # (AUTO) 6.1 X 10^3 (1.8-7.8); NEUTROPHILS % (AUTO) 70 % (42-75); PLATELET COUNT 186 10^3/uL (130-400); RED CELL DISTRIBUTION WIDTH 12.6 % (10.0-14.5); WHITE BLOOD COUNT 8.8 10^3/uL (4.3-11.0)
--- NOTE | 2019-12-12 13:44 | Diagnostic Imaging Report ---
INDICATION: Hypertension. History of previous stroke.. TECHNIQUE: Single view chest 1:33 PM. CORRELATION STUDY: None FINDINGS: The heart size, mediastinal configuration and pulmonary vascularity are within normal limits. Lung sigala are hyperinflated. No consolidating infiltrate. There is questionable vague density about the medial left lung apex, 16 mm in size. IMPRESSION: 1. Negative for acute abnormality of the chest. 2. Hyperinflated lung sigala compatible with COPD. Questionable density of the left lung apex medially. May be of no significance and are perhaps summation shadows and/or pleural thickening. However, developing apical mass is not excluded given its asymmetry. Short-term follow-up repeat two-view chest imaging recommended. Dictated by: Dictated on workstation # [id number]
--- NOTE | 2019-12-12 13:47 | Diagnostic Imaging Report ---
INDICATION: Hypertension. TECHNIQUE: Routine non contrast-enhanced axial images were obtained from the skull base to the vertex. Auto Exposure Controls were utilized during the CT exam to meet ALARA standards for radiation dose reduction COMPARISON: 03/14/2014. FINDINGS: The ventricles and cortical sulci are diffusely prominent, compatible with age-related volume loss. There are confluent areas of abnormal, low attenuation in the periventricular white matter. This is consistent with chronic small vessel ischemic changes. There is no midline shift or mass-effect. No acute intra-axial hemorrhage is seen. There are no abnormal areas of increased or decreased density to suggest acute hemorrhage or edema. No extra-axial masses or collections are present. The bony calvarium is intact. The visualized paranasal sinuses are unremarkable. The mastoid air cells are clear. IMPRESSION: 1. No acute intracranial abnormality. No CT evidence of mass, acute infarct or intracranial hemorrhage. 2. Chronic small vessel ischemic changes in the deep white matter. Dictated by: Dictated on workstation # [id number]
[2019-12-12 13:49] LABS: INR 0.9 (0.8-1.4); PROTHROMBIN TIME PATIENT 12.2 SEC (12.2-14.7)
[2019-12-12 13:50] LABS: ALANINE AMINOTRANSFERASE 7 U/L (0-55); ALBUMIN 4.2 GM/DL (3.2-4.5); ALKALINE PHOSPHATASE 149 U/L (40-136); BILIRUBIN,TOTAL 0.3 MG/DL (0.1-1.0); BUN/CREATININE RATIO 19; CALCIUM 9.6 MG/DL (8.5-10.1); CARBON DIOXIDE 23 MMOL/L (21-32); CHLORIDE 102 MMOL/L (98-107); CREATININE SERUM 0.62 MG/DL (0.60-1.30); GFR ESTIMATED > 60; GLUCOSE 113 MG/DL (70-105); SODIUM 140 MMOL/L (135-145); TOTAL PROTEIN 7.3 GM/DL (6.4-8.2)
[2019-12-12 14:09] VITALS: BP 148/62
[2019-12-12] MEDS ORDERED: VITAMIN (20:55)
[2019-12-12] MEDS ORDERED: PROAIR (20:55)
[2019-12-12] MEDS ORDERED: HYDR12.56 (20:55)
[2019-12-12] MEDS ORDERED: POTA20TA15 (20:55)
[2019-12-13] MEDS ORDERED: METO-352 PO (00:08)
== END 2019-12-12 14:15 | disposition home or self-care (01) ==
LOC: EDUNIT# 12:53 → ER FS 12:56
DX: G45.9 Transient cerebral ischemic attack, unspecified (principal); I10 Essential (primary) hypertension; R91.8 Other nonspecific abnormal finding of lung field; I25.10 Atherosclerotic heart disease of native coronary artery without angina pectoris; J43.9 Emphysema, unspecified; E78.00 Pure hypercholesterolemia, unspecified; F41.9 Anxiety disorder, unspecified; F17.210 Nicotine dependence, cigarettes, uncomplicated; Z79.02 Long term (current) use of antithrombotics/antiplatelets; Z95.5 Presence of coronary angioplasty implant and graft; Z86.73 Personal history of transient ischemic attack (TIA), and cerebral infarction without residual deficits; Z91.041 Radiographic dye allergy status; Z88.0 Allergy status to penicillin; Z88.7 Allergy status to serum and vaccine; Z79.82 Long term (current) use of aspirin
CPT/HCPCS: 36415; 70450; 71045; 80053; 83735; 85025; 85610; 85730

== ENCOUNTER 2019-12-12 20:04 | Emergency (ER) | payer MEDICARE, MEDICAID ==
[~2019-12-12] VITALS: Ht 160 cm; Wt 62.5 kg
[2019-12-12 20:50] LABS: BASOPHILS # (AUTO) 0.1 10^3/uL (0.0-0.1); BASOPHILS % (AUTO) 1 % (0-10); EOSINOPHILS # (AUTO) 0.1 10^3/uL (0.0-0.3); EOSINOPHILS % (AUTO) 2 % (0-10); HEMATOCRIT 50 % (35-52); HEMOGLOBIN 17.7 G/DL (11.5-16.0); LYMPHOCYTES # (AUTO) 2.1 X 10^3 (1.0-4.0); LYMPHOCYTES % (AUTO) 26 % (12-44); MEAN CORPUSCULAR HEMOGLOBIN 33 PG (25-34); MEAN CORPUSCULAR HGB CONC 35 G/DL (32-36); MEAN CORPUSCULAR VOLUME 95 FL (80-99); MONOCYTES # (AUTO) 0.6 X 10^3 (0.0-1.0); MONOCYTES % (AUTO) 7 % (0-12); NEUTROPHILS # (AUTO) 5.2 X 10^3 (1.8-7.8); NEUTROPHILS % (AUTO) 64 % (42-75); PLATELET COUNT 198 10^3/uL (130-400); RED CELL DISTRIBUTION WIDTH 13.3 % (10.0-14.5); WHITE BLOOD COUNT 8.1 10^3/uL (4.3-11.0)
[2019-12-12] MEDS ORDERED: PROAIR (20:55)
[2019-12-12] MEDS ORDERED: VITAMIN (20:55)
[2019-12-12] MEDS ORDERED: HYDR12.56 (20:55)
[2019-12-12] MEDS ORDERED: POTA20TA15 (20:55)
[2019-12-12 20:59] LABS: ALBUMIN 4.5 GM/DL (3.2-4.5); CHLORIDE 102 MMOL/L (98-107); INR 0.9 (0.8-1.4); POTASSIUM 3.7 MMOL/L (3.6-5.0); PROTHROMBIN TIME PATIENT 12.8 SEC (12.2-14.7); SODIUM 141 MMOL/L (135-145)
[2019-12-12 21:00] LABS: CALCIUM 9.7 MG/DL (8.5-10.1)
[2019-12-12 21:01] LABS: GLUCOSE 105 MG/DL (70-105); TOTAL PROTEIN 7.7 GM/DL (6.4-8.2)
[2019-12-12 21:02] LABS: CARBON DIOXIDE 27 MMOL/L (21-32)
[2019-12-12 21:03] LABS: BILIRUBIN,TOTAL 0.4 MG/DL (0.1-1.0)
[2019-12-12 21:05] LABS: ALKALINE PHOSPHATASE 148 U/L (40-136); CREATININE SERUM 0.81 MG/DL (0.60-1.30); GFR ESTIMATED > 60
[2019-12-12 21:06] LABS: BUN/CREATININE RATIO 12
[2019-12-12 21:08] LABS: ALANINE AMINOTRANSFERASE 8 U/L (0-55)
--- NOTE | 2019-12-12 21:13 | ED General ---
General Chief Complaint: Cardiac/General Problems Stated Complaint: DX WITH TIA, HIGH BLOOD PRESSURE Nursing Triage Note: was seen in [facility] ED this morning, was diagnosed with TIA and hypertension, has hx of IA, called social work supervisor office who suggested she be seen in this ED d/t abilities [facility] can do testing ferreira compared to abilities [facility] ED can do Nursing Sepsis Screen: No Definite Risk Source of Information: Patient (SOMEWHAT DIFFICULT HISTORIAN), Old Records (ER RECORD FROM [place] [facility] TODAY) History of Present Illness Date Seen by Provider: Dec 12, 2019 Time Seen by Provider: 20:28 Initial Comments PT ARRIVES VIA POV FROM HOME IN [place]. DROVE SELF HERE C/O ELEVATED BLOOD PRESSURE--HAS BEEN CHECKING HER BLOOD PRESSURE SINCE LAST NIGHT--READINGS RANGING FROM 160'S/ HIGH 90'S , UP TO 206 SYSTOLIC AND 107 DIASTOLIC. PT HAS NO IDEA WHAT HER NORMAL BP IS PT STATES SHE HAS HAD HTN, BUT "CONTROLS IT WITH MARIJUANA AND TAKING TURMERIC IN HER FOOD" HAS BEEN PRESCRIBED HYDROCHLOROTHIAZIDE IN THE PAST, BUT HAS NOT TAKEN IT FOR A LONG TIME, HOWEVER, WHEN SHE SAW HER PCP, DR. COOMBS IN [place], [place] THIS WEEK, HE RESTARTED IT--RX FILLED ON 12/09/19. STATES SHE HAS NOT TAKEN ANY TODAY HAS NOT BEEN PRESCRIBED ANYTHING ELSE FOR HER BLOOD PRESSURE AT ANY TIME, ACCORDING TO PT PT WAS SEEN AT [place] ER [facility] TODAY, AROUND NOON TIME, FOR THIS SAME PROBLEM STATES SHE HAS HAD TINGLING TO THE RIGHT SIDE OF HER UPPER LIP, A SEVERE HEADACHE ALL DAY, AND LEFT POSTERIOR NECK PAIN SINCE WAKING THIS MORNING. HAS ONGOING BLURRY VISION AT TIMES--IS ONGOING PROBLEM--DOES NOT WEAR GLASSES ADDITIONALLY, PT C/O LEFT POSTERIOR LEG PAIN--IS A CHRONIC PROBLEM, AND NO DIFFERENT TODAY THAN NORMAL. HAS CHRONIC BACK PAIN. NO PARESTHESIAS OR MOTOR DEFICITS. NO PROBLEMS WITH BOWEL OR BLADDER FUNCTION. THOSE SYMPTOMS PERSIST, BUT HAS NOT TAKEN ANYTHING FOR PAIN TODAY CT HEAD AND LAB DONE AT [place]--CT READ NEGATIVE. IT WAS ADVISED THAT SHE BE ADMITTED HERE, BUT PT DECLINED, AND OPTED TO GO HOME PT DOES NOT HAVE ANY DIFFICULTY TALKING OR SWALLOWING NO FACIAL PARALYSIS NO EXTREMITY PARESTHESIAS OR MOTOR DEFICITS. NO REPORTED CONFUSION PT STATES WHEN SHE GOT HOME, SHE TRIED TO MAKE AN APPOINTMENT WITH DR. AL, AND WITH HER PCP, DR. COOMBS PT STATES THAT WHEN SHE CALLED DR. COOMBS'S OFFICE, "THEY TOLD ME TO COME HER TO DO THE TESTS FOR MY HEART" STATES SHE HAS HAD AN IA AND A STENT AND ANGIOPLASTY IN THE PAST PT IS ON PLAVIX AND A STATIN. PT DOES NOT HAVE ANY CARDIAC SYMPTOMS PT DENIES ANY CHEST PAIN NO PALPITATIONS NO GI SYMPTOMS NO FEVER OR COUGH OR URI SYMPTOMS NO DIZZINESS OR SYNCOPE NO CHANGE IN CHRONIC SHORTNESS OF BREATH, ALTHOUGH SHE STATES IT HAS BEEN A LITTLE WORSE OVER THE LAST COUPLE OF WEEKS, AND SHE SAW HER PCP A COUPLE OF WEEKS AGO AND HAD AN ULTRASOUND AND CT SCAN OF HER ABDOMEN FOR THIS COMPLAINT OF SHORTNESS OF BREATH. SHE ALSO STATES THAT HER "RED BLOOD CELL COUNT WAS HIGH" HAS FOLLOW UP APPOINTMENT WITH HIM ON Monday12/16/19 FOR ALL OF THESE ISSUES PT CONTINUES TO SMOKE 1/2 PPD OF CIGARETTES, PLUS 6-8 MARIJUANA CIGARETTES A DAY "3 OR 4 IN THE MORNING AND 3 OR 4 AT NIGHT" NO KNOWN SICK CONTACTS OR EXPOSURE TO COVID-19 PCP: DR. COOMBS IN [place] GENERAL LABORER: DR. AL Allergies and Home Medications Allergies Coded Allergies: Iodinated Contrast Media (Verified Allergy, Unknown, 08/22/08) Penicillins (Verified Allergy, Unknown, 08/22/08) Tetanus Vaccines and Toxoid (Verified Allergy, Unknown, 08/22/08) grapefruit (Verified Allergy, Unknown, 08/22/08) meperidine (Verified Allergy, Unknown, 12/12/19) Home Medications Albuterol Sulfate 1 Puff Puff, 2 PUFF INH Q4H PRN for SHORTNESS OF BREATH, (Reported) Alprazolam 0.5 Mg Tablet, 1 MG PO HS, (Reported) Alprazolam 0.5 Mg Tablet, 0.5 MG PO DAILY PRN for ANXIETY, (Reported) Aspirin 81 Mg Tablet.dr, 81 MG PO DAILY, (Reported) Cholecalciferol (Vitamin D3) 50,000 Unit Capsule, 50,000 UNIT PO WEEK, (Reported) Clopidogrel Bisulfate 75 Mg Tablet, 75 MG PO DAILY, (Reported) Cyclobenzaprine HCl 10 Mg Tablet, 10 MG PO TID PRN for MUSCLE SPASMS, (Reported) Diphenhydramine HCl 25 Mg Capsule, 25 MG PO Q6H PRN for RASH, (Reported) Metoprolol Succinate 50 Mg Tab.er.24h, 50 MG PO DAILY Prescribed by: DENIA GILL on 12/13/19 0008 Nitroglycerin 4.9 Gm [place], 1-2 SPRAYS TL EVERY 5 MIN PRN for CHEST PAIN, (Reported) Nitroglycerin 0.4 Mg Tab.subl, 0.4 MG SL UD PRN for CHEST PAIN, (Reported) Simvastatin 20 Mg Tablet, 20 MG PO WEEK, (Reported) Patient Home Medication List Home Medication List Reviewed: Yes Review of Systems Review of Systems Constitutional: no symptoms reported EENTM: no symptoms reported Respiratory: no symptoms reported Cardiovascular: no symptoms reported Gastrointestinal: no symptoms reported Genitourinary: no symptoms reported Musculoskeletal: see HPI, back pain (CHRONIC/UNCHANGED. ), neck pain, other (LEFT LEG PAIN --CHRONIC ) Skin: no symptoms reported Psychiatric/Neurological: See HPI, Headache Hematologic/Lymphatic: No Symptoms Reported Immunological/Allergic: no symptoms reported Past Avfleut-Bqbzif-Lzicjn Hx Patient Social History Alcohol Use: Denies Use Recreational Drug Use: Yes Drug of Choice: MARIJUANA Type Used: Cigarettes 2nd Hand Smoke Exposure: Yes Recent Foreign Travel: No Contact w/Someone Who Travel: No Recent Infectious Disease Expo: No Recent Hopitalizations: No Seasonal Allergies Seasonal Allergies: No Past Medical History Surgeries: Yes (R SIDE FACE RESCONSTRUCIONT, BACK FUSION, KIDNEY,KNEE MONSERRAT ORTHO) Appendectomy, Coronary Stent Respiratory: Yes (COPD,EMPHYSEMA) COPD, Emphysema Currently Using CPAP: No Currently Using BIPAP: No Cardiac: Yes Coronary Artery Disease, High Cholesterol, Hypertension Neurological: Yes Seizure Disorder, Stroke Genitourinary: Yes Kidney Infection Gastrointestinal: Yes (REFLUX) Gastroesophageal Reflux Musculoskeletal: No Endocrine: No (BLOOOD SUGAR DROPS AT 0530) HEENT: No Cancer: No (HAS BEEN HAVING LUNG BIOPSYS, ALL BENIGN THUS FAR) Psychosocial: Yes Anxiety Integumentary: No Blood Disorders: No Adverse Reaction/Blood Tranf: No Physical Exam Vital Signs Vital Signs - First Documented 12/12/19 12/13/19 20:30 00:33 Temp 36.9 Pulse 105 Resp 18 B/P (MAP) 153/119 (130) Pulse Ox 94 O2 Delivery Room Air Capillary Refill : Less Than 3 Seconds Height, Weight, BMI Height: 5'3.00" Weight: 163lbs. 0.0oz. 73.173346dl; 24.00 BMI Method: General Appearance: Other (REEKS OF MARIJUANA AND CIGARETTE SMOKE) HEENT: PERRL/EOMI Neck: Full Range of Motion, Normal Inspection, Non Tender, Supple; No Carotid Bruit, No JVD Respiratory: Normal Breath Sounds, No Accessory Muscle Use, No Respiratory Distress Cardiovascular: Regular Rate, Rhythm, No Edema, No JVD, No Murmur, Normal Peripheral Pulses Gastrointestinal: Normal Bowel Sounds, No Organomegaly, No Pulsatile Mass, Non Tender, Soft Back: Normal Inspection, No CVA Tenderness Extremity: Normal Capillary Refill, Normal Inspection, Normal Range of Motion, Non Tender, No Calf Tenderness, No Pedal Edema Neurologic/Psychiatric: Alert, Oriented x3, No Motor/Sensory Deficits, Normal Mood/Affect, director of consumer marketing II-XII Norm as Tested; No Abnormal Cerebellar Tests Reflexes: 2+ Bicep (R), 2+ Bicep (L), 2+ Knee (R), 2+ Knee (L) Skin: Normal Color, Warm/Dry Progress/Results/Core Measures Suspected Sepsis Recent Fever Within 48 Hours: No Infection Criteria Present: None New/Unexplained Altered Menta: No Sepsis Screen: No Definite Risk SIRS Temperature: Pulse: 105 Respiratory Rate: 18 Laboratory Tests 12/12/19 20:42: White Blood Count 8.1 Blood Pressure 153 /119 Mean: 130 Laboratory Tests 12/12/19 20:42: Creatinine 0.81, INR Comment 0.9, Platelet Count 198, Total Bilirubin 0.4 Results/Orders Lab Results Laboratory Tests Test 12/12/19 20:42 12/12/19 23:45 Range/Units White Blood Count 8.1 4.3-11.0 10^3/uL Red Blood Count 5.32 4.35-5.85 10^6/uL Hemoglobin 17.7 H 11.5-16.0 G/DL Hematocrit 50 35-52 % Mean Corpuscular Volume 95 80-99 FL Mean Corpuscular Hemoglobin 33 25-34 PG Mean Corpuscular Hemoglobin Concent 35 32-36 G/DL Red Cell Distribution Width 13.3 10.0-14.5 % Platelet Count 198 130-400 10^3/uL Mean Platelet Volume 11.0 H 7.4-10.4 FL Neutrophils (%) (Auto) 64 42-75 % Lymphocytes (%) (Auto) 26 12-44 % Monocytes (%) (Auto) 7 0-12 % Eosinophils (%) (Auto) 2 0-10 % Basophils (%) (Auto) 1 0-10 % Neutrophils # (Auto) 5.2 1.8-7.8 X 10^3 Lymphocytes # (Auto) 2.1 1.0-4.0 X 10^3 Monocytes # (Auto) 0.6 0.0-1.0 X 10^3 Eosinophils # (Auto) 0.1 0.0-0.3 10^3/uL Basophils # (Auto) 0.1 0.0-0.1 10^3/uL Prothrombin Time 12.8 12.2-14.7 SEC INR Comment 0.9 0.8-1.4 Activated Partial Thromboplast Time 32 24-35 SEC Sodium Level 141 135-145 MMOL/L Potassium Level 3.7 3.6-5.0 MMOL/L Chloride Level 102 98-107 MMOL/L Carbon Dioxide Level 27 21-32 MMOL/L Anion Gap 12 5-14 MMOL/L Blood Urea Nitrogen 10 7-18 MG/DL Creatinine 0.81 0.60-1.30 MG/DL Estimat Glomerular Filtration Rate > 60 BUN/Creatinine Ratio 12 Glucose Level 105 70-105 MG/DL Calcium Level 9.7 8.5-10.1 MG/DL Corrected Calcium 9.3 8.5-10.1 MG/DL Magnesium Level 2.0 1.6-2.4 MG/DL Total Bilirubin 0.4 0.1-1.0 MG/DL Aspartate Amino Transf (AST/SGOT) 13 5-34 U/L Alanine Aminotransferase (ALT/SGPT) 8 0-55 U/L Alkaline Phosphatase 148 H 40-136 U/L Troponin I < 0.028 <0.028 NG/ML B-Type Natriuretic Peptide 43.3 <100.0 PG/ML Total Protein 7.7 6.4-8.2 GM/DL Albumin 4.5 3.2-4.5 GM/DL Glucometer 113 H 70-110 MG/DL My Orders Orders - DENIA GILL DO Ed Iv/Invasive Line Start (12/12/19 20:37) Ekg Tracing (12/12/19 20:37) Monitor-Rhythm Ecg Trace Only (12/12/19 20:37) BNP (12/12/19 20:37) Cbc With Automated Diff (12/12/19 20:37) Comprehensive Metabolic Panel (12/12/19 20:37) Magnesium (12/12/19 20:37) Protime With Inr (12/12/19 20:37) Partial Thromboplastin Time (12/12/19 20:37) Troponin I (12/12/19 20:37) Ct Angio Head/Neck (12/12/19 21:04) Diphenhydramine Injection (Benadryl Inje (12/12/19 21:15) Iohexol Injection (Omnipaque 350 Mg/Ml 1 (12/12/19 21:15) Received Contrast (Hold Metformin- Contr (12/12/19 21:15) Ns (Ivpb) (Sodium Chloride 0.9% Ivpb Bag (12/12/19 21:15) Labetalol Injection (Normodyne Injection (12/12/19 22:00) Accucheck Stat ONCE (12/12/19 23:39) Medications Given in ED Current Medications Medications Dose Ordered Sig/Olu Route Start Time Stop Time Status Last Admin Dose Admin Diphenhydramine HCl 50 mg ONCE ONCE IVP 12/12/19 21:15 12/12/19 21:16 DC 12/12/19 21:20 50 MG Iohexol 100 ml ONCE ONCE IV 12/12/19 21:15 12/12/19 21:20 DC 12/12/19 21:52 75 ML Labetalol HCl 20 mg ONCE ONCE IV 12/12/19 22:00 12/12/19 22:01 DC 12/12/19 22:33 20 MG Sodium Chloride 100 ml ONCE ONCE IV 12/12/19 21:15 12/12/19 21:20 DC 12/12/19 21:52 80 ML Vital Signs/I&O 12/12/19 12/13/19 20:30 00:33 Temp 36.9 36.9 Pulse 105 91 Resp 18 16 B/P (MAP) 153/119 (130) 159/104 (130) Pulse Ox 94 O2 Delivery Room Air Capillary Refill : Less Than 3 Seconds Blood Pressure Mean: 130 Progress Note : Progress Note GIVEN LABETALOL FOR BLOOD PRESSURE, WITH MODEST IMPROVEMENT NO COMPLAINTS OF HEADACHE FOR REMAINDER OF ER STAY. ON REVIEWING CT FINDINGS, PT NOW STATES THAT BOTH HER FATHER AND HER BROTHER OF CEREBRAL ANEURYSMS. ECG Initial ECG Impression Date: Dec 12, 2019 Initial ECG Impression Time: 20:32 Initial ECG Rate: 103 Initial ECG Rhythm: S.Tach Diagnostic Imaging Comments CXR--NO ACUTE PROCESS, PENDING RADIOLOGIST REVIEW CT ANGIOGRAM HEAD/NECK--NO INFARCT OR MASS . RIGHT INTERNAL CAROTID ARTERY WITH 5.4 X 4.4 MM ANEURYSM, AND RIGHT MIDDLE CEREBRAL ARTERY WITH 3 X 3 MM ANEURYSM. NO SIGNS OF RUPTURE. NO SIGNIFICANT STENOSIS. PER [facility] VIA FAX AT [id number] AND CORRECTED REPORT AT [id number], AND DISCUSSED WITH [facility] RADIOLOGIST Reviewed: Reviewed by Me, Discussed w/Radiologist Departure Communication (Admissions) 2237--CALLED [facility], WILL PAGE NEUROLOGIST AND CLOUD CT IMAGES TO THEM FOR THEIR REVIEW 2347--CALLED [facility]. THEY SPOKE WITH NEUROLOGIST, WHO DEFERRED TO NEUROSURGEON. PAGING HIM NOW. 0001--SPOKE WITH DR. DARCI DUMONT, NEUROSURGEON. HE ADVISES THAT PT MAY GO HOME AND THEY WILL FOLLOW UP WITH PT IN CLINIC. Impression Primary Impression: HTN (hypertension) Additional Impression: Cerebral aneurysm without rupture Disposition: HOME, SELF-CARE Condition: Improved Departure-Patient Inst. Referrals: SISSY COOMBS MD (PCP/Family) Primary Care Physician Patient Instructions: Brain Aneurysm (DC), DASH Diet, High Blood Pressure (DC) Add. Discharge Instructions: NO SMOKING AND NO MARIJUANA USE CONTINUE YOUR CURRENT MEDICATIONS AND TAKE YOUR MEDICATIONS EXACTLY PRESCRI BED CALL [facility] IN THE MORNING AND SCHEDULE A FOLLOW UP WITH DR. DARCI DUMONT AT NEUROSURGERY CLINIC AT --[phone] AL FOR FURTHER EVALUATION OF BLOOD PRESSURE All discharge instructions reviewed with patient and/or family. Voiced understanding. Scripts Metoprolol Succinate (Toprol Xl) 50 Mg Tab.er.24h 50 MG PO DAILY, #30 TAB Prov: DENIA GILL DO 12/13/19 DENIA GILL DO Dec 12, 2019 21:13
[2019-12-12] MEDS ORDERED: IOHEXOL 350 MG/ML 100 ML (OMNIPAQUE 350) VIAL IV ONE (21:15)
[2019-12-12] MEDS ORDERED: diphenhydrAMINE 50 MG/ML INJ (BENADRYL) IVP ONE (21:15)
[2019-12-12] MEDS ORDERED: NS 100 ML (IVPB) BAG IV ONE (21:15)
[2019-12-12] MEDS ORDERED: HOLD METFORMIN - RECEIVED CONTRAST 20 ML VIAL IV SCH (21:15)
[2019-12-12] MEDS ORDERED: LABETALOL HCL 20 MG/4 ML VIAL IV ONE (22:00)
--- OUTSIDE RECORDS SUMMARY | 2019-12-12 23:21 | XMS REPORT | Encounter Summary ---
Author Author [facility] Address Unknown Phone Unavailable Care Team Providers Care Adjunct Faculty Instructor Name Role Phone Ajit Link MD Unavailable Abelardo Judd MD PCP Miko Esteves MD Unavailable Khoa Swift MD Unavailable Encounter Details Care Team Description Date Type Department Arrived 12/12/2019 [facility] [address] [address] Social History Date Tobacco Use Types Packs/Day Years Used Current Every Day Smoker Cigarettes 0.3 Drinks/Week oz/Week Comments Alcohol Use RARELY Yes Sex Assigned at Date Recorded Not on file Industry Job Start Date Occupation Not on file Not on file Not on file Travel End Travel History Travel Start No recent travel history available. documented as of this encounter Plan of Treatment Not on filedocumented as of this encounter Procedures Comments Procedure Name Priority Date/Time Associated Diag nosis CTA HEAD EXTERNAL IMAGING Routine 12/12/2019 Diag nosis unknown 11:10 PM CDT documented in this encounter Results * CTA HEAD EXTERNAL IMAGING (12/12/2019 11:10 PM CDT) Specimen Narrative Performed At This order has been auto finalized and does not contain a result. documented in this encounter Visit Diagnoses Diagnosis Diagnosis unknown Other unknown and unspecified cause of morbidity or mortality documented in this encounter
--- OUTSIDE RECORDS SUMMARY | 2019-12-12 23:21 | XMS REPORT | Clinical Summary ---
Author Author [facility] Organization [facility] Address Unknown Phone Unavailable Care Team Providers Care Plating Stripper Name Role Phone Ajit Link MD Unavailable Abelardo Judd MD PCP Miko Esteves MD Unavailable Khoa Swift MD Unavailable Source Comments Some departments are not documenting in the electronic medical record. If you d o not see the information that you expected, contact Release of Information in [facility] Information Management department at [phone] for further assistan ce in locating additional records.[facility] Allergies Comments Active Allergy Reactions Severity Noted Date Meperidine UNKNOWN 09/02/2010 Grapefruit UNKNOWN 07/02/2012 Penicillins UNKNOWN 09/02/2010 Tetanus Vaccines And UNKNOWN 09/02/2010 Toxoid Medications End Date Status Medication Sig Dispensed Refills Start Date Active gabapentin (NEURONTIN) Take 300 mg 0 300 mg PO tablet by mouth daily. Active gabapentin (NEURONTIN) Take 200 mg 0 100 mg PO tablet by mouth. Active alprazolam (XANAX) 0.5 mg Take 0.5 mg 0 PO tablet by mouth at bedtime as needed. Active SULFAMETHOXAZOLE/TRIMETHO Take by 0 PRIM (BACTRIM PO) mouth. Active Aspirin 81 mg PO Tab Take by 0 mouth. Active nitroglycerin Take 1 Terrell 0 (NITROLINGUAL) 0.4 by mouth mg/dose TL translingual every 5 spray minutes as needed. Active CYCLOBENZAPRINE HCL Take by 0 (FLEXERIL PO) mouth. Active albuterol (VENTOLIN HFA, Inhale 2 0 PROAIR HFA) 90 Puffs by mcg/actuation inhaler mouth every 6 hours as needed. Active Problems Not on file Encounters Care Team Description Date Type Specialty Arrived 12/12/2019 Hospital Radiology Encounter from Last 3 Months Family History Medical History Relation Name Comments Heart Disease Father Circulatory problem Mother Aneurysm Other Diabetes Other Heart Disease Other Other Other Hypertension Other Thyroid Disease Other Heart Attack Other Relation Name Status Comments Father Mother Other Other Other Other Other Other Other Social History Date Tobacco Use Types Packs/Day Years Used Current Every Day Smoker Cigarettes 0.3 Drinks/Week oz/Week Comments Alcohol Use RARELY Yes Sex Assigned at Date Recorded Not on file Industry Job Start Date Occupation Not on file Not on file Not on file Travel End Travel History Travel Start No recent travel history available. Last Filed Vital Signs Reading Time Taken Comments Vital Sign 120/80 10/15/2009 11:52 AM CDT Blood Pressure 80 10/15/2009 11:52 AM CDT Pulse 36.7 C (98.1 F) 10/05/2009 11:53 AM CDT Temperature 16 10/05/2009 11:53 AM CDT Respiratory Rate - - Oxygen Saturation - - Inhaled Oxygen Concentration 72.1 kg (159 lb) 10/15/2009 11:52 AM CDT Weight 160 cm (5' 3") 10/15/2009 11:52 AM CDT Height 28.17 10/15/2009 11:52 AM CDT Body Mass Index Plan of Treatment Health Maintenance Due Date Last Done Comments HIV SCREENING 1971 DTAP/TDAP VACCINES (1 - 1974 Tdap) HEPATITIS C SCREENING 1974 PHYSICAL (COMPREHENSIVE) 1974 EXAM CERVICAL CANCER SCREENING 1977 BREAST CANCER SCREENING 1996 COLORECTAL CANCER 2006 SCREENING SHINGLES RECOMBINANT 2006 VACCINE (1 of 2) INFLUENZA VACCINE 04/02/2020 Procedures Comments Procedure Name Priority Date/Time Associated Diag nosis CTA HEAD EXTERNAL IMAGING Routine 12/12/2019 Diag nosis unknown 11:10 PM CDT from Last 3 Months Results * CTA HEAD EXTERNAL IMAGING (12/12/2019 11:10 PM CDT) Specimen Narrative Performed At This order has been auto finalized and does not contain a result. from Last 3 Months Insurance Type Payer Benefit Subscriber ID Effective Phone Address Plan / Dates Group Medicaid [place] [employer] xxxxxxxxxxx 2010- STATE Present HEALTH [phone] [address] [facility] (Home[facility] [place] [phone] Advance Directives Patient Seasonal Customer Service Associate Explanation Type Date Recorded Advance 04/09/2015 11:58 AM Directive/DPOA
--- OUTSIDE RECORDS SUMMARY | 2019-12-12 23:23 | XMS REPORT | Continuity of Care Document ---
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 plasma calcium measurement (mass/volume) 8.5 mg/dL 8.5-10.1 CBC - 01/08/19 16:10 WHITE BLOOD CELL COUNT 8.3 Thousand/uL 3 .8-10.8 RED BLOOD CELL COUNT 5.13 Million/uL 3.8 0-5.10 HEMOGLOBIN 15.7 g/dL 11.7-15.5 HEMATOCRIT 46.7 % 35.0-45.0 MCV 91.0 fL 80.0-100.0 MCH 30.6 pg 27.0-33.0 MCHC 33.6 g/dL 32.0-36.0 RDW 12.5 % 11.0-15.0 PLATELET COUNT 250 Thousand/uL 140-400 MPV 11.4 fL 7.5-12.5 ABSOLUTE NEUTROPHILS 4997 cells/uL 1500- 7800 ABSOLUTE LYMPHOCYTES 2523 cells/uL 850-3 900 ABSOLUTE MONOCYTES 564 cells/uL 200-950 ABSOLUTE EOSINOPHILS 133 cells/uL 15-500 ABSOLUTE BASOPHILS 83 cells/uL 0-200 NEUTROPHILS 60.2 % NRG LYMPHOCYTES 30.4 % NRG MONOCYTES 6.8 % NRG EOSINOPHILS 1.6 % NRG BASOPHILS 1.0 % NRG TSH - 01/08/19 16:10 TSH 1.17 mIU/L 0.40-4.50 Automated blood complete blood count (he mogram) panel - 04/30/19 07:40 Blood leukocytes automated count (number/volume) 5.9 10*3/uL 4.3-11.0 Blood erythrocytes automated count (number/volume) 5.41 10*6/uL 4.35-5.85 Venous blood hemoglobin measurement (mass/volume) 17.2 g/dL 11.5-16.0 Blood hematocrit (volume fraction) 51 % 35-52 Automated erythrocyte mean corpuscular volume 94 [ foz_us] 80-99 Automated erythrocyte mean corpuscular h emoglobin (mass per erythrocyte) 32 pg 25-34 Automated erythrocyte mean corpuscular h emoglobin concentration measurement (mass/volume) 34 g/dL 32-36 Automated erythrocyte distribution width ratio 13. 3 % 10.0- 14.5 Automated blood platelet count (count/volume) 177 10*3/uL 130-400 Automated blood platelet mean volume measurement 11.0 [foz_us] 7.4-10.4 Comprehensive metabolic panel - 04/30/19 07:40 Serum or plasma sodium measurement (moles/volume) 140 mmol/L 135-145 Serum or plasma potassium measurement (moles/volume) 4.3 mmol/L 3.6-5.0 Serum or plasma chloride measurement (moles/volume) 104 mmol/L 98-107 Carbon dioxide 22 mmol/L 21-32 Serum or plasma anion gap determination (moles/volume) 14 mmol/L 5-14 Serum or plasma urea nitrogen measurement (mass/volume ) 12 mg/dL 7-18 Serum or plasma creatinine measurement (mass/volume) 0.76 mg/dL 0.60-1.30 Serum or plasma urea nitrogen/creatinine mass ratio 16 NRG Serum or plasma creatinine measurement w ith calculation of estimated glomerular filtration rate > NRG Serum or plasma glucose measurement (mass/volume) 149 mg/dL 70-105 Serum or plasma calcium measurement (mass/volume) 9.7 mg/dL 8.5-10.1 Serum or plasma total bilirubin measurement (mass/volu me) 0.3 mg/dL 0.1-1.0 Serum or plasma alkaline phosphatase michael surement (enzymatic activity/volume) 129 U/L 40-136 Serum or plasma aspartate aminotransfera se measurement (enzymatic activity/volume) 17 U/L 5-34 Serum or plasma alanine aminotransferase measurement (enzymatic activity/volume) 11 U/L 0-55 Serum or plasma protein measurement (mass/volume) 7.6 g/dL 6.4-8.2 Serum or plasma albumin measurement (mass/volume) 4.4 g/dL 3.2-4.5 CALCIUM CORRECTED 9.4 mg/dL 8.5-10.1 Lipid 1996 panel - 04/30/19 07:40 Serum or plasma triglyceride measurement (mass/volume) 53 mg/dL <150 Serum or plasma cholesterol measurement (mass/volume) 255 mg/dL < 200 Serum or plasma cholesterol in HDL measurement (mass/v olume) 54 mg/dL 40-60 Cholesterol in LDL [mass/volume] in serum or plasma by direct assay 193 mg/dL 1-129 Serum or plasma cholesterol in VLDL measurement (mass/ volume) 11 mg/dL 5-40 PT panel in platelet poor plasma by coag ulation assay - 04/30/19 07:40 Prothrombin time (PT) in platelet poor plasma by coagu lation assay 12.5 s 12.2-14.7 INR in platelet poor plasma or blood by coagulation as say 0.9 0.8-1.4 Activated partial thromboplastin time (a PTT) in platelet poor plasma bycoagulation assay - 04/30/19 07:40 Activated partial thromboplastin time (a PTT) in platelet poor plasma bycoagulation assay 31 s 24-35 Methicillin resistant Staphylococcus aur eus (MRSA) screening culture - 04/30/19 07:40 Methicillin resistant Staphylococcus aureus (MRSA) scr eening culture NEG NRG PDM - 09 PANEL (PROFILE 1) - 07/09/19 17 :15 Prescribed Drug 1 Xanax(TM) NRG Creatinine 51.6 mg/dL > or = 20.0 pH 6.8 4.5-9.0 Oxidant NEGATIVE mcg/mL <200 Amphetamines NEGATIVE ng/mL <500 medMATCH Amphetamines CONSISTENT NRG Benzodiazepines POSITIVE ng/mL <100 Marijuana Metabolite POSITIVE ng/mL <20 Cocaine Metabolite NEGATIVE ng/mL <150 medMATCH Cocaine Metab CONSISTENT NRG Opiates NEGATIVE ng/mL <100 medMATCH Opiates CONSISTENT NRG Oxycodone NEGATIVE ng/mL <100 medMATCH Oxycodone CONSISTENT NRG COMMENT NRG Alphahydroxyalprazolam 122 ng/mL <25 medMATCH aOH alprazolam CONSISTENT NRG Alphahydroxymidazolam NEGATIVE ng/mL < 50 medMATCH aOH midazolam CONSISTENT NRG Alphahydroxytriazolam NEGATIVE ng/mL < 50 medMATCH aOH triazolam CONSISTENT NRG Aminoclonazepam NEGATIVE ng/mL <25 medMATCH Aminoclonazepam CONSISTENT NRG Hydroxyethylflurazepam NEGATIVE ng/mL <50 medMATCH OH,Et flurazepam CONSISTENT NR G Lorazepam NEGATIVE ng/mL <50 medMATCH Lorazepam CONSISTENT NRG Nordiazepam NEGATIVE ng/mL <50 medMATCH Nordiazepam CONSISTENT NRG Oxazepam NEGATIVE ng/mL <50 medMATCH Oxazepam CONSISTENT NRG Temazepam NEGATIVE ng/mL <50 medMATCH Temazepam CONSISTENT NRG Marijuana Metabolite 165 ng/mL <5 medMATCH Marijuana Metab INCONSISTENT N RG Barbiturates NEGATIVE ng/mL <300 medMATCH Barbiturates CONSISTENT NRG Methadone Metabolite NEGATIVE ng/mL <100 medMATCH Methadone Metab CONSISTENT NRG Phencyclidine NEGATIVE ng/mL <25 medMATCH Phencyclidine CONSISTENT NRG Complete blood count (CBC) with automate d white blood cell (WBC) differential - 12/12/19 13:15 Blood leukocytes automated count (number/volume) 8.8 10*3/uL 4.3-11.0 Blood erythrocytes automated count (number/volume) 5.25 10*6/uL 4.35-5.85 Venous blood hemoglobin measurement (mass/volume) 17.2 g/dL 11.5-16.0 Blood hematocrit (volume fraction) 50 % 35-52 Automated erythrocyte mean corpuscular volume 95 [ foz_us] 80-99 Automated erythrocyte mean corpuscular h emoglobin (mass per erythrocyte) 33 pg 25-34 Automated erythrocyte mean corpuscular h emoglobin concentration measurement (mass/volume) 34 g/dL 32-36 Automated erythrocyte distribution width ratio 12. 6 % 10.0- 14.5 Automated blood platelet count (count/volume) 186 10*3/uL 130-400 Automated blood platelet mean volume measurement 11.1 [foz_us] 7.4-10.4 Automated blood neutrophils/100 leukocytes 70 % 42-75 Automated blood lymphocytes/100 leukocytes 24 % 12-44 Blood monocytes/100 leukocytes 4 % 0-12 Automated blood eosinophils/100 leukocytes 1 % 0-10 Automated blood basophils/100 leukocytes 1 % 0-10 Blood neutrophils automated count (number/volume) 6.1 10*3 1.8-7.8 Blood lymphocytes automated count (number/volume) 2.1 10*3 1.0-4.0 Blood monocytes automated count (number/volume) 0. 3 10*3 0.0-1.0 Automated eosinophil count 0.1 10*3/uL 0 .0-0.3 Automated blood basophil count (count/volume) 0.1 10*3/uL 0.0-0.1 PT panel in platelet poor plasma by coag ulation assay - 12/12/19 13:15 Prothrombin time (PT) in platelet poor plasma by coagu lation assay 12.2 s 12.2-14.7 INR in platelet poor plasma or blood by coagulation as say 0.9 0.8-1.4 Activated partial thromboplastin time (a PTT) in platelet poor plasma bycoagulation assay - 12/12/19 13:15 Activated partial thromboplastin time (a PTT) in platelet poor plasma bycoagulation assay 31 s 24-35 Comprehensive metabolic panel - 12/12/19 13:15 Serum or plasma sodium measurement (moles/volume) 140 mmol/L 135-145 Serum or plasma potassium measurement (moles/volume) 4.0 mmol/L 3.6-5.0 Serum or plasma chloride measurement (moles/volume) 102 mmol/L 98-107 Carbon dioxide 23 mmol/L 21-32 Serum or plasma anion gap determination (moles/volume) 15 mmol/L 5-14 Serum or plasma urea nitrogen measurement (mass/volume ) 12 mg/dL 7-18 Serum or plasma creatinine measurement (mass/volume) 0.62 mg/dL 0.60-1.30 Serum or plasma urea nitrogen/creatinine mass ratio 19 NRG Serum or plasma creatinine measurement w ith calculation of estimated glomerular filtration rate > NRG Serum or plasma glucose measurement (mass/volume) 113 mg/dL 70-105 Serum or plasma calcium measurement (mass/volume) 9.6 mg/dL 8.5-10.1 Serum or plasma total bilirubin measurement (mass/volu me) 0.3 mg/dL 0.1-1.0 Serum or plasma alkaline phosphatase michael surement (enzymatic activity/volume) 149 U/L 40-136 Serum or plasma aspartate aminotransfera se measurement (enzymatic activity/volume) 14 U/L 5-34 Serum or plasma alanine aminotransferase measurement (enzymatic activity/volume) 7 U/L 0-55 Serum or plasma protein measurement (mass/volume) 7.3 g/dL 6.4-8.2 Serum or plasma albumin measurement (mass/volume) 4.2 g/dL 3.2-4.5 CALCIUM CORRECTED 9.4 mg/dL 8.5-10.1 Magnesium - 12/12/19 13:15 Magnesium 2.0 mg/dL 1.6-2.4 Complete blood count (CBC) with automate d white blood cell (WBC) differential - 12/12/19 20:42 Blood leukocytes automated count (number/volume) 8.1 10*3/uL 4.3-11.0 Blood erythrocytes automated count (number/volume) 5.32 10*6/uL 4.35-5.85 Venous blood hemoglobin measurement (mass/volume) 17.7 g/dL 11.5-16.0 Blood hematocrit (volume fraction) 50 % 35-52 Automated erythrocyte mean corpuscular volume 95 [ foz_us] 80-99 Automated erythrocyte mean corpuscular h emoglobin (mass per erythrocyte) 33 pg 25-34 Automated erythrocyte mean corpuscular h emoglobin concentration measurement (mass/volume) 35 g/dL 32-36 Automated erythrocyte distribution width ratio 13. 3 % 10.0- 14.5 Automated blood platelet count (count/volume) 198 10*3/uL 130-400 Automated blood platelet mean volume measurement 11.0 [foz_us] 7.4-10.4 Automated blood neutrophils/100 leukocytes 64 % 42-75 Automated blood lymphocytes/100 leukocytes 26 % 12-44 Blood monocytes/100 leukocytes 7 % 0-12 Automated blood eosinophils/100 leukocytes 2 % 0-10 Automated blood basophils/100 leukocytes 1 % 0-10 Blood neutrophils automated count (number/volume) 5.2 10*3 1.8-7.8 Blood lymphocytes automated count (number/volume) 2.1 10*3 1.0-4.0 Blood monocytes automated count (number/volume) 0. 6 10*3 0.0-1.0 Automated eosinophil count 0.1 10*3/uL 0 .0-0.3 Automated blood basophil count (count/volume) 0.1 10*3/uL 0.0-0.1 Comprehensive metabolic panel - 12/12/19 20:42 Serum or plasma sodium measurement (moles/volume) 141 mmol/L 135-145 Serum or plasma potassium measurement (moles/volume) 3.7 mmol/L 3.6-5.0 Serum or plasma chloride measurement (moles/volume) 102 mmol/L 98-107 Carbon dioxide 27 mmol/L 21-32 Serum or plasma anion gap determination (moles/volume) 12 mmol/L 5-14 Serum or plasma urea nitrogen measurement (mass/volume ) 10 mg/dL 7-18 Serum or plasma creatinine measurement (mass/volume) 0.81 mg/dL 0.60-1.30 Serum or plasma urea nitrogen/creatinine mass ratio 12 NRG Serum or plasma creatinine measurement w ith calculation of estimated glomerular filtration rate > NRG Serum or plasma glucose measurement (mass/volume) 105 mg/dL 70-105 Serum or plasma calcium measurement (mass/volume) 9.7 mg/dL 8.5-10.1 Serum or plasma total bilirubin measurement (mass/volu me) 0.4 mg/dL 0.1-1.0 Serum or plasma alkaline phosphatase michael surement (enzymatic activity/volume) 148 U/L 40-136 Serum or plasma aspartate aminotransfera se measurement (enzymatic activity/volume) 13 U/L 5-34 Serum or plasma alanine aminotransferase measurement (enzymatic activity/volume) 8 U/L 0-55 Serum or plasma protein measurement (mass/volume) 7.7 g/dL 6.4-8.2 Serum or plasma albumin measurement (mass/volume) 4.5 g/dL 3.2-4.5 CALCIUM CORRECTED 9.3 mg/dL 8.5-10.1 PT panel in platelet poor plasma by coag ulation assay - 12/12/19 20:42 Prothrombin time (PT) in platelet poor plasma by coagu lation assay 12.8 s 12.2-14.7 INR in platelet poor plasma or blood by coagulation as say 0.9 0.8-1.4 Activated partial thromboplastin time (a PTT) in platelet poor plasma bycoagulation assay - 12/12/19 20:42 Activated partial thromboplastin time (a PTT) in platelet poor plasma bycoagulation assay 32 s 24-35 Magnesium - 12/12/19 20:42 Magnesium 2.0 mg/dL 1.6-2.4 Serum or plasma troponin i.cardiac measu rement (mass/volume) - 12/12/19 20:42 Serum or plasma troponin i.cardiac measurement (mass/v olume) < ng/mL <0.028 Serum or plasma lithium measurement (mol es/volume) - 12/12/19 20:42 BNP PT 43.3 pg/mL <100.0 Encounters ACCT No. Visit Date/Time Discharge Status Pt. Type Provider Facility Loc./Unit Complaint [id number] 07/09/2019 16:20:00 07/09/2019 23:59: 59 CLS Outpatient SISSY COOMBS [facility] [address] [id number] 07/09/2019 16:20:00 Document Registration [id number] 01/08/2019 15:00:00 Document Registration [id number] 04/30/2019 07:19:00 13:00:00 DIS Outpatient SERVANDO HANKINS FACC, BETZY BELL CC DS [facility] CATH CAD,CHEST DISCOMFORT,HTN,PALPITATIONS [id number] 07/10/2018 07:13:00 019 10:20:00 DIS Outpatient SERVANDO HANKINS FACC, ALI FACP CC DS [facility] ANGINA,SOB, FATIGUE,HTN [id number] 05/21/2018 10:22:00 018 23:59:59 CLS Outpatient SERVANDO HANKINS FACC, ALI FACP CC DS [facility] CARD CHEST DISCOMFORT,SOB,PALPITATIONS [id number] 09/06/2016 12:21:00 017 23:59:59 CLS Outpatient SERVANDO HANKINS FACC, ALI FACP CC DS [facility] RAD CLAUDICAASHWINO N [id number] 09/06/2016 08:00:00 017 23:59:59 CLS Outpatient SERVANDO HANKINS FACC, BETZY FACP CC DS [facility] CARD CHEST DISCO MFORT [id number] 08/23/2016 08:15:00 017 23:59:59 CLS Preadmit SERVANDO HANKINS FACC, BETZY LEBRONP CCDS [facility] CARD CHEST DISCOMFORT,CAD,CHRONIC BACK PAIN,COPD [id number] 03/14/2014 12:21:00 014 23:59:59 CLS Outpatient MEG BOWLES MD [facility] RAD TIA,SPEECH DISTURBANCES ,ASCENDING PARALYSIS OF LEG [id number] 02/21/2013 12:09:00 013 23:59:59 CLS Outpatient SERVANDO HANKINS FACC, BETZY FACP CC DS [facility] CARD BRADYCARDIA [id number] 02/19/2013 06:57:00 013 14:30:00 DIS Outpatient SERVANDO HANKINS FACC, ALI FACP CC DS [facility] CATH CP,SOB [id number] 02/18/2013 08:01:00 013 23:59:59 CLS Outpatient SERVANDO HANKINS FACC, ALI FACP CC DS [facility] PREOP SOB,CHEST PAIN,HTN,HYPERLIPIDEMIA [id number] 12/12/2019 20:52:00 Document Registration [id number] 12/12/2019 13:35:00 Document Registration [id number] 05/11/2018 08:06:00 Document Registration [id number] 05/11/2018 08:06:00 Document Registration [id number] 07/10/2017 10:17:00 07/10/2017 12:55: 00 DIS Outpatient [facility] [id number] 09/13/2016 14:57:00 09/13/2016 23:59: 00 DIS Outpatient Meg Bowles [id number] 07/10/2017 10:53:09 Document Registration
[2019-12-13] MEDS ORDERED: METO-352 PO (00:08)
[2019-12-13 00:33] VITALS: BP 159/104
--- NOTE | 2019-12-13 05:49 | Diagnostic Imaging Report ---
PROCEDURE: CT angiography of the head and CT angiography of the neck with and without contrast. TECHNIQUE: Contiguous noncontrast images were obtained from the skull base through the vertex. After intravenous contrast administration, helical CT angiography of the neck was performed. Source data was reformatted into 3D MIP projections. Delayed post contrast acquisition was also obtained. Auto Exposure Controls were utilized during the CT exam to meet ALARA standards for radiation dose reduction. INDICATION: Transient ischemic attack and hypertension. History of migraines. COMPARISON: CT head 12/12/2019 FINDINGS: CTA NECK: Aorta: Aortic arch is limited in evaluation with artifact present. Does appear relatively normal, with standard three vessel branching pattern. Right Common/Internal/External Carotid Artery: Patent and without significant stenosis. Left Common/Internal/External Carotid Artery: Patent and without significant stenosis. Vertebral arteries: Codominant. Patent and without significant stenosis. Non-vascular: No concerning cervical lymphadenopathy. Airway is patent. There is advanced emphysematous changes about the lung apices. CTA HEAD: Anterior Circulation: Approximately 5 x 4 mm aneurysm arising off the lateral aspect of the cavernous right internal carotid artery (image 3-4 15). Intracranial segments otherwise patent without significant stenosis. Left intracranial segment is patent without significant stenosis or aneurysm. There is approximately 3 x 3 mm aneurysm arising from the peripheral right MCA bifurcation (image 3-4 17) disease. No occlusion or significant stenosis. The left middle cerebral artery appears unremarkable. The anterior cerebral arteries are patent and without stenosis. Posterior Circulation: The bilateral intracranial segments of the vertebral arteries are patent. The basilar artery is patent and without stenosis. The posterior cerebral arteries are patent. Post Contrast Head: No abnormal areas of contrast enhancement on postcontrast imaging. IMPRESSION: 1. No large vessel occlusion of the [place]. 2. Approximately 5 mm aneurysm arising off the lateral aspect the cavernous right internal carotid artery 3. 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 4. Unremarkable CTA of the neck. A preliminary report was provided by [employer]. Dictated by: Dictated on workstation # [id number]
== END 2019-12-13 00:33 | disposition home or self-care (01) ==
LOC: EDUNIT# 20:04 → ER 20:05
DX: I10 Essential (primary) hypertension (principal); G45.9 Transient cerebral ischemic attack, unspecified; I67.1 Cerebral aneurysm, nonruptured; J43.9 Emphysema, unspecified; I25.2 Old myocardial infarction; E78.00 Pure hypercholesterolemia, unspecified; I25.10 Atherosclerotic heart disease of native coronary artery without angina pectoris; F41.9 Anxiety disorder, unspecified; F17.210 Nicotine dependence, cigarettes, uncomplicated; Z86.73 Personal history of transient ischemic attack (TIA), and cerebral infarction without residual deficits; Z95.5 Presence of coronary angioplasty implant and graft; Z79.02 Long term (current) use of antithrombotics/antiplatelets; Z91.041 Radiographic dye allergy status; Z88.0 Allergy status to penicillin; Z88.7 Allergy status to serum and vaccine; Z88.5 Allergy status to narcotic agent; Z79.82 Long term (current) use of aspirin
CPT/HCPCS: 36415; 70496; 70498; 80053; 82962; 83735; 83880; 84484; 85025; 85610; 85730; 93005; 93041; 96374; 96375

== ENCOUNTER 2020-01-27 09:25 | Outpatient (RCR) | payer MEDICARE, MEDICAID ==
[2020-01-07 09:35] LABS: BASOPHILS # (AUTO) 0.1 10^3/uL (0.0-0.1); BASOPHILS % (AUTO) 1 % (0-10); EOSINOPHILS # (AUTO) 0.2 10^3/uL (0.0-0.3); EOSINOPHILS % (AUTO) 3 % (0-10); HEMATOCRIT 47 % (35-52); HEMOGLOBIN 16.1 G/DL (11.5-16.0); LYMPHOCYTES # (AUTO) 2.6 X 10^3 (1.0-4.0); LYMPHOCYTES % (AUTO) 30 % (12-44); MEAN CORPUSCULAR HGB CONC 34 G/DL (32-36); MEAN CORPUSCULAR VOLUME 98 FL (80-99); MEAN PLATELET VOLUME 11.1 FL (7.4-10.4); MONOCYTES # (AUTO) 0.6 X 10^3 (0.0-1.0); MONOCYTES % (AUTO) 7 % (0-12); NEUTROPHILS # (AUTO) 5.3 X 10^3 (1.8-7.8); NEUTROPHILS % (AUTO) 60 % (42-75); PLATELET COUNT 165 10^3/uL (130-400); WHITE BLOOD COUNT 8.8 10^3/uL (4.3-11.0)
[2020-01-07 09:39] LABS: MEAN CORPUSCULAR HEMOGLOBIN 33 PG (25-34)
[~2020-01-27 09:25] MED LIST changes: +ASPI-1238 PO; -ASPI-983 PO; +HYDR12.56; +METO-352 PO; +POTA20TA15; +PROAIR; +VITAMIN
[2020-01-27 09:37] LABS: BASOPHILS # (AUTO) 0.1 10^3/uL (0.0-0.1); BASOPHILS % (AUTO) 1 % (0-10); EOSINOPHILS # (AUTO) 0.3 10^3/uL (0.0-0.3); EOSINOPHILS % (AUTO) 4 % (0-10); HEMATOCRIT 47 % (35-52); HEMOGLOBIN 15.9 G/DL (11.5-16.0); LYMPHOCYTES # (AUTO) 3.1 X 10^3 (1.0-4.0); LYMPHOCYTES % (AUTO) 38 % (12-44); MEAN CORPUSCULAR HEMOGLOBIN 33 PG (25-34); MEAN CORPUSCULAR HGB CONC 34 G/DL (32-36); MEAN CORPUSCULAR VOLUME 97 FL (80-99); MEAN PLATELET VOLUME 11.1 FL (7.4-10.4); MONOCYTES # (AUTO) 0.6 X 10^3 (0.0-1.0); MONOCYTES % (AUTO) 8 % (0-12); NEUTROPHILS % (AUTO) 50 % (42-75); PLATELET COUNT 169 10^3/uL (130-400); WHITE BLOOD COUNT 8.1 10^3/uL (4.3-11.0)
== END 2020-03-20 08:46 | disposition home or self-care (01) ==
LOC: ONC 09:25
PROVIDERS: ATTEND Internal Medicine Hematology & Oncology
DX: D58.2 Other hemoglobinopathies (principal); I10 Essential (primary) hypertension; I25.10 Atherosclerotic heart disease of native coronary artery without angina pectoris; J44.9 Chronic obstructive pulmonary disease, unspecified; E78.5 Hyperlipidemia, unspecified; M19.90 Unspecified osteoarthritis, unspecified site; Z95.828 Presence of other vascular implants and grafts; Z72.0 Tobacco use
CPT/HCPCS: 81270; 85025; G0463; 99213; 99214

== ENCOUNTER → 2021-11-15 | Outpatient (CLI) | payer MEDICARE, MEDICAID ==
[~2021-11-15] MED LIST changes: +CYCL10TA25 PO; +POTA-179; -POTA20TA15
== END ==
LOC: CARD 10:30
PROVIDERS: ATTEND Internal Medicine Cardiovascular Disease
DX: I25.10 Atherosclerotic heart disease of native coronary artery without angina pectoris (principal)
CPT/HCPCS: 93306

== ENCOUNTER → 2021-11-30 | Outpatient (CLI) | payer MEDICARE, MEDICAID ==
[~2021-11-30] VITALS: Ht 157 cm; Wt 79.0 kg
[~2021-11-30] MED LIST changes: +CATHETER FLUSH 10 ML SYR IVP PRN; +REGADENOSON 0.4 MG/5 ML SYR (LEXISCAN) IV ONE
[2021-11-30 06:52] LABS: BASOPHILS # (AUTO) 0.1 10^3/uL (0.0-0.1); BASOPHILS % (AUTO) 1 % (0-10); EOSINOPHILS # (AUTO) 0.3 10^3/uL (0.0-0.3); EOSINOPHILS % (AUTO) 4 % (0-10); HEMATOCRIT 50 % (35-52); HEMOGLOBIN 17.2 g/dL (11.5-16.0); LYMPHOCYTES # (AUTO) 2.9 10^3/uL (1.0-4.0); LYMPHOCYTES % (AUTO) 36 % (12-44); MEAN CORPUSCULAR HEMOGLOBIN 34 pg (25-34); MEAN CORPUSCULAR HGB CONC 35 g/dL (32-36); MEAN CORPUSCULAR VOLUME 98 fL (80-99); MEAN PLATELET VOLUME 11.1 fL (9.0-12.2); MONOCYTES # (AUTO) 0.5 10^3/uL (0.0-1.0); MONOCYTES % (AUTO) 7 % (0-12); NEUTROPHILS # (AUTO) 4.1 10^3/uL (1.8-7.8); NEUTROPHILS % (AUTO) 52 % (42-75); PLATELET COUNT 154 10^3/uL (130-400); WHITE BLOOD COUNT 7.9 10^3/uL (4.3-11.0)
[2021-11-30 07:05] LABS: POTASSIUM 4.2 MMOL/L (3.6-5.0)
[2021-11-30 07:07] LABS: CALCIUM 9.6 MG/DL (8.5-10.1)
[2021-11-30 07:08] LABS: TOTAL PROTEIN 6.8 GM/DL (6.4-8.2)
[2021-11-30 07:10] LABS: BILIRUBIN,TOTAL 0.5 MG/DL (0.1-1.0)
[2021-11-30 07:12] LABS: CREATININE SERUM 0.85 MG/DL (0.60-1.30)
[2021-11-30 09:13] VITALS: BP 185/102
--- NOTE | 2021-12-03 13:45 | STRESS TEST ---
DATE OF SERVICE: 11/30/2021 RESTING AND POST REGADENOSON TECHNETIUM-99M TETROFOSMIN SPECT CT IMAGING ORDERING PHYSICIAN: Dr. Zapata. PRIMARY PHYSICIAN: Dr. Dumont. CLINICAL DIAGNOSIS: Coronary artery disease. Baseline images were carried out after injection of 11 mCi of technetium-99m Tetrofosmin. This was followed by 0.4 mg Regadenoson and 32.9 mCi of technetium-99m Tetrofosmin. The electrocardiogram showed sinus rhythm at baseline. It did not change significantly with the Regadenoson infusion. The patient noted some shortness of breath, which resolved in a few minutes. Review of images at rest and following stress does not indicate any distinct perfusion defects consistent with significant myocardial ischemia or infarction. Gated images show normal global left ventricular systolic function with normal regional wall motion. Left ventricular ejection fraction is calculated to be 60%. CONCLUSIONS: 1. No evidence of any significant myocardial ischemia or infarction on this study. 2. Normal regional wall motion. 3. Normal global left ventricular systolic function with a calculated ejection fraction of 60%. Job ID: [id number] DocumentID: [id number] Dictated Date: 12/03/2021 10:15:44 Mail Technician Date: 12/03/2021 13:45:08 Dictated By: BETZY ZAPATA MD, MA, FACP, FACC,
== END ==
LOC: CARD 08:30
PROVIDERS: ATTEND Internal Medicine Cardiovascular Disease
DX: E78.2 Mixed hyperlipidemia (principal); J44.9 Chronic obstructive pulmonary disease, unspecified; M79.89 Other specified soft tissue disorders; I67.1 Cerebral aneurysm, nonruptured; I70.213 Atherosclerosis of native arteries of extremities with intermittent claudication, bilateral legs; I65.23 Occlusion and stenosis of bilateral carotid arteries; I25.10 Atherosclerotic heart disease of native coronary artery without angina pectoris; I10 Essential (primary) hypertension; Z72.0 Tobacco use
CPT/HCPCS: 78452; 80053; 80061; 83735; 85025; 93017; A9502; 36415

== ENCOUNTER 2022-12-08 13:10 | Emergency (ER) | payer MEDICARE, MEDICAID ==
[~2022-12-08] VITALS: Ht 157 cm; Wt 82.0 kg
[~2022-12-08 13:10] MED LIST changes: -CATHETER FLUSH 10 ML SYR IVP PRN; +CLOP-31 PO; -CLOP75TA69 PO; +DIPH-1122 PO; -DIPH25CA48 PO; -REGADENOSON 0.4 MG/5 ML SYR (LEXISCAN) IV ONE
--- NOTE | 2022-12-08 14:18 | ED Lower Extremity ---
General Chief Complaint: Lower Extremity Stated Complaint: POSSIBLE BLOOD CLOTS|LEG AND FEET PAIN|SWELLING Nursing Triage Note: PT SENT FROM [facility], CONCERNED PT MAY HAVE BLOOD CLOT IN L LOWER EXT. PT STATES HAS ANEURSYM SURG IN BRAIN ON 11/14 IN [place]. PT HAS SWELLING AND PAIN IN L LOWER EXT Source: patient Exam Limitations: no limitations History of Present Illness Date Seen by Provider: Dec 08, 2022 Time Seen by Provider: 13:27 Initial Comments This 67-year-old woman presents to the emergency room with complaints of bilateral lower extremity edema after having a procedure for treatment of brain aneurysm at [facility] on November 14. She describes symptoms of dusky discoloration and discomfort in her toes and soles of her feet at night. She reports a history of Raynaud's syndrome but states it has never been accompanied by swelling in the past. She was sent to the emergency room by the [facility] clinic in [place]. Patient is noted to have very strong palpable dorsal pedal pulses bilaterally along with excellent capillary refill of 3 seconds or less in all toes. Patient is a s moker. Patient denies symptoms are any worse when temperatures are cold. Allergies and Home Medications Allergies Coded Allergies: Iodinated Contrast Media (Verified Allergy, Unknown, 08/22/08) Penicillins (Verified Allergy, Unknown, 08/22/08) Tetanus Vaccines and Toxoid (Verified Allergy, Unknown, 08/22/08) grapefruit (Verified Allergy, Unknown, 08/22/08) meperidine (Verified Allergy, Unknown, 12/12/19) Patient Home Medication List Home Medication List Reviewed: Yes Albuterol Sulfate (Ventolin Hfa) 1 Puff Puff, 2 PUFF INH Q4H PRN for SHORTNESS OF BREATH, (Reported) Entered as Reported by: ARIEL PAGAN on 04/30/19803 Alprazolam (Alprazolam) 0.5 Mg Tablet, 1 MG PO HS, (Reported) Entered as Reported by: ARIEL PAGAN on 04/30/19804 Alprazolam (Xanax) 0.5 Mg Tablet, 0.5 MG PO DAILY PRN for ANXIETY, (Reported) Entered as Reported by: ARIEL PAGAN on 04/30/19804 Aspirin (Aspirin EC) 81 Mg Tablet., 81 MG PO DAILY, (Reported) Entered as Reported by: ARIEL PAGAN on 04/30/19803 Cholecalciferol (Vitamin D3) (Vitamin D-3) 2,000 Unit Tablet, 2,000 UNIT PO, (Reported) Entered as Reported by: ARIEL PAGAN on 04/30/19806 Cholecalciferol (Vitamin D3) (Vitamin D3) 50,000 Unit Capsule, 50,000 UNIT PO WEEK, (Reported) Entered as Reported by: ARIEL PAGAN on 04/30/19806 Clopidogrel Bisulfate (Plavix) 75 Mg Tablet, 75 MG PO DAILY, (Reported) Entered as Reported by: ARIEL PAGAN on 04/30/19803 Cyclobenzaprine HCl (Cyclobenzaprine HCl) 10 Mg Tablet, 10 MG PO TID PRN for MUSCLE SPASMS, (Reported) Entered as Reported by: ARIEL PAGAN on 04/30/19803 Diphenhydramine HCl (Diphenhydramine HCl) 25 Mg Capsule, 25 MG PO Q6H PRN for RASH, (Reported) Entered as Reported by: ARIEL PAGAN on 04/30/19803 Hydrochlorothiazide (Hydrochlorothiazide) 12.5 Mg Tablet, (Reported) Entered as Reported by: SANTOSH OLGUIN on 12/12/192054 Metoprolol Succinate (Toprol Xl) 50 Mg Tab.er.24h, 50 MG PO DAILY Prescribed by: DENIA GILL on 12/13/197 Nitroglycerin (Nitroglycerin) 4.9 Gm Tanana, 1-2 SPRAYS TL EVERY 5 MIN PRN for CHEST PAIN, (Reported) Entered as Reported by: ARIEL PAGAN on 04/30/19803 Nitroglycerin (Nitroglycerin) 0.4 Mg Tab.subl, 0.4 MG SL UD PRN for CHEST PAIN, (Reported) Entered as Reported by: ARIEL PAGAN on 04/30/19806 Potassium Chloride (Potassium Chloride) 20 Meq Tab.er.prt, (Reported) Entered as Reported by: SANTOSH OLGUIN on 12/12/192054 Simvastatin (Simvastatin) 20 Mg Tablet, 20 MG PO WEEK, (Reported) Entered as Reported by: ARIEL PAGAN on 04/30/19803 [Proair] , (Reported) Entered as Reported by: SANTOSH OLGUIN on 12/12/192054 [Vitamin] , (Reported) Entered as Reported by: SANTOSH OLGUIN on 12/12/192054 Review of Systems Constitutional: no symptoms reported EENTM: no symptoms reported Respiratory: no symptoms reported Cardiovascular: see HPI Gastrointestinal: no symptoms reported Genitourinary: no symptoms reported : No Musculoskeletal: no symptoms reported Skin: see HPI Psychiatric/Neurological: No Symptoms Reported Past Rozesyt-Btfxnw-Oucnex Hx Patient Social History Tobacco Use?: Yes Tobacco type used: Cigarettes Smoking Status: Current Everyday Smoker Use of E-Cig and/or Vaping dev: No Substance use?: Yes Substance type: Marijuana Substance frequency: Daily Alcohol Use?: Yes Alcohol type: Hard Liquor Alcohol Frequency: Once in a while Pt feels they are or have been: No Seasonal Allergies Seasonal Allergies: No Past Medical History Surgery/Hospitalization HX: BACK SURG, BRAIN SURG. APPY, KIDNEY SURG, Surgeries: Yes (R SIDE FACE RESCONSTRUCIONT, BACK FUSION, KIDNEY,KNEE MONSERRAT ORTHO) Appendectomy, Coronary Stent, Vascular Surgery (Brain aneurysm repair) Respiratory: Yes (COPD,EMPHYSEMA) COPD, Emphysema Currently Using CPAP: No Currently Using BIPAP: No Cardiac: Yes Coronary Artery Disease, High Cholesterol, Hypertension Neurological: Yes Seizure Disorder, Stroke Genitourinary: Yes Kidney Infection Gastrointestinal: Yes (REFLUX) Gastroesophageal Reflux Musculoskeletal: No Endocrine: No (BLOOOD SUGAR DROPS AT 0530) HEENT: No Cancer: No (HAS BEEN HAVING LUNG BIOPSYS, ALL BENIGN THUS FAR) Psychosocial: Yes Anxiety Integumentary: No Blood Disorders: No Adverse Reaction/Blood Tranf: No Physical Exam Vital Signs Vital Signs - First Documented 12/08/22 13:20 Temp 36.6 Pulse 88 Resp 18 B/P (MAP) 147/102 (117) Pulse Ox 90 O2 Delivery Room Air Capillary Refill : Less Than 3 Seconds Height, Weight, BMI Height: 5'3.00" Weight: 163lbs. 0.0oz. 73.204181gp; 33.00 BMI Method: General Appearance: WD/WN, no apparent distress HEENT: normal ENT inspection Cardiovascular: other (Strong dorsal pedal pulses bilaterally with capillary refill 3 seconds or less in all toes) Respiratory: no respiratory distress Legs: bilateral leg non-tender, bilateral leg swelling (Mild to moderate pitting edema bilaterally) Ankles: bilateral ankle non-tender, bilateral ankle swelling Feet: bilateral foot non-tender, bilateral foot swelling, bilateral foot other (Strong dorsal pedal pulses bilaterally) Neurologic/Psychiatric: no motor/sensory deficits, alert, normal mood/affect, oriented x 3 Skin: normal color, warm/dry, other (Hyperemia of the feet bilaterally) Progress/Results/Core Measures Results/Orders Lab Results Laboratory Tests Test 12/08/22 13:25 Range/Units White Blood Count 8.6 4.3-11.0 10^3/uL Red Blood Count 4.96 3.80-5.11 10^6/uL Hemoglobin 16.5 H 11.5-16.0 g/dL Hematocrit 48 35-52 % Mean Corpuscular Volume 97 80-99 fL Mean Corpuscular Hemoglobin 33 25-34 pg Mean Corpuscular Hemoglobin Concent 34 32-36 g/dL Red Cell Distribution Width 12.1 10.0-14.5 % Platelet Count 186 130-400 10^3/uL Mean Platelet Volume 12.1 9.0-12.2 fL Immature Granulocyte % (Auto) 0 % Neutrophils (%) (Auto) 54 42-75 % Lymphocytes (%) (Auto) 32 12-44 % Monocytes (%) (Auto) 8 0-12 % Eosinophils (%) (Auto) 5 0-10 % Basophils (%) (Auto) 1 0-10 % Neutrophils # (Auto) 4.6 1.8-7.8 10^3/uL Lymphocytes # (Auto) 2.7 1.0-4.0 10^3/uL Monocytes # (Auto) 0.7 0.0-1.0 10^3/uL Eosinophils # (Auto) 0.5 H 0.0-0.3 10^3/uL Basophils # (Auto) 0.1 0.0-0.1 10^3/uL Immature Granulocyte # (Auto) 0.0 0.0-0.1 10^3/uL Erythrocyte Sedimentation Rate 14 0-30 MM/HR Sodium Level 142 135-145 MMOL/L Potassium Level 4.2 3.6-5.0 MMOL/L Chloride Level 108 H 98-107 MMOL/L Carbon Dioxide Level 26 21-32 MMOL/L Anion Gap 8 5-14 MMOL/L Blood Urea Nitrogen 14 7-18 MG/DL Creatinine 0.85 0.60-1.30 MG/DL Estimat Glomerular Filtration Rate 76 BUN/Creatinine Ratio 16 Glucose Level 118 H 70-105 MG/DL Calcium Level 9.5 8.5-10.1 MG/DL C-Reactive Protein High Sensitivity 1.86 H 0.00-0.50 MG/DL My Orders Orders - TRACYE THORNTON MD Us Venous Lower Ext Monserrat (12/08/22 13:38) Basic Metabolic Panel (12/08/22 14:22) Cbc With Automated Diff (12/08/22 14:22) Hs C Reactive Protein (12/08/22 14:22) Erythrocyte Sedimentation Rate (12/08/22 14:22) Ed Iv/Invasive Line Start (12/08/22 14:22) Vital Signs/I&O 12/08/22 13:20 Temp 36.6 Pulse 88 Resp 18 B/P (MAP) 147/102 (117) Pulse Ox 90 O2 Delivery Room Air Blood Pressure Mean: 117 Progress Progress Note #1: Time: 14:18 Progress Note Patient was interviewed and examined. She seems to be describing symptoms of Raynaud's syndrome. She is concerned because the symptoms of Raynaud's have not been accompanied by edema in the past. She has no significant calf pain or swelling. Arterial studies are not necessary at this time as patient has very strong palpable dorsal pedal pulses and warm pink toes with capillary refill of 3 seconds or less. Bilateral lower extremity venous Doppler ultrasounds are pending. Progress Note #2: Time: 14:56 Progress Note Venous Doppler studies were negative for DVT. Labs were obtained. CBC demonstrated increase in hemoglobin of 16.5. This is a drop from her prior hemoglobin suggesting no polycythemia. Inflammatory markers (CRP and ESR) were unremarkable suggesting no vasculitis. BMP was unremarkable. Patient is being discharged to outpatient follow-up and advised to discontinue smoking. A calcium channel camila may be appropriate for her. I am suggesting that she follow-up with her shoe packer, Dr. Zapata, to discuss further. From an emergency room perspective, there is no emergent medical condition that requires intervention at this time. See discharge instructions for further discussion. Diagnostic Imaging Diagonstic Imaging: Ultrasound Plain Films/CT/US/NM/MRI: leg Comments NAME: GRACE MI [facility] REC#: [id number] PT STATUS: REG ER : 1955 PHYSICIAN: TRACEY THORNTON MD ADMIT DATE: 12/08/22/ER Signed Date of Exam:12/08/22 US VENOUS LOWER EXT MONSERRAT PROCEDURE: US Venous Lower Ext Monserrat. TECHNIQUE: Multiple real-time grayscale images were obtained over the lower extremities in various projections, bilaterally. Additional duplex Doppler and color Doppler images were also obtained. INDICATION: Bilateral lower extremity pain and edema. COMPARISON: None. FINDINGS: The bilateral common femoral vein, femoral vein, deep femoral vein, and popliteal vein are normal in appearance. These vessels show normal compressibility, color flow and doppler augmentation. The visualized deep calf veins demonstrate no distinct intraluminal thrombus. IMPRESSION: 1. No sonographic evidence of deep venous thrombosis in the bilateral lower extremities. Dictated by: Dictated on workstation # [id number] Dict: 12/08/22 1437 Trans: 12/08/22 1444 CVB [id number] Interpreted by: PASCALE ROMERO DO Electronically signed by: PASCALE ROMERO DO 12/08/22 1444 Departure Impression Primary Impression: Lower extremity edema Additional Impression: Raynauds syndrome Qualified Codes: I73.00 - Raynaud's syndrome without gangrene Disposition: 01 HOME, SELF-CARE Condition: Stable Departure-Patient Inst. Referrals: SISSY COOMBS MD (PCP/Family) Primary Care Physician Patient Instructions: Dependent Edema (DC), Quitting Smoking ED, Raynaud disease Add. Discharge Instructions: There was no evidence of blood clots in your legs on ultrasound exam. Your lab work is relatively unremarkable during the ER visit and stable from prior visit. Your symptoms may be in part due to Raynaud's phenomenon. Please follow-up with Dr. Zapata as soon as possible to discuss further evaluation and treatment. There are certain calcium channel camila blood pressure medications that may be used to help treat Raynaud's phenomenon. In the meantime, elevate your feet toward the level of your heart is much as possible. When elevating your legs, be sure that your feet are level with or higher than your knees. Keeping your feet warm will also help. Also avoid excessive salt and drink plenty of water. Be aware of hidden salts in food and beverages that have high salt content. Examples may be canned vegetables, pickles, fast foods, etc. It is critical that you discontinue smoking completely and as rapidly as possible. Please seek assistance from your primary care provider if necessary. Return to the emergency room if you have any worsening of symptoms requiring urgent attention. All discharge instructions reviewed with patient and/or family. Voiced understanding. Copy Copies To 1: BETZY ZAPATA MD FACP FACC CCDS Copies To 2: [facility]/TRACEY MARTINES MD Dec 08, 2022 14:18
[2022-12-08 14:27] LABS: BASOPHILS # (AUTO) 0.1 10^3/uL (0.0-0.1); BASOPHILS % (AUTO) 1 % (0-10); EOSINOPHILS # (AUTO) 0.5 10^3/uL (0.0-0.3); EOSINOPHILS % (AUTO) 5 % (0-10); HEMATOCRIT 48 % (35-52); HEMOGLOBIN 16.5 g/dL (11.5-16.0); LYMPHOCYTES # (AUTO) 2.7 10^3/uL (1.0-4.0); LYMPHOCYTES % (AUTO) 32 % (12-44); MEAN CORPUSCULAR HEMOGLOBIN 33 pg (25-34); MEAN CORPUSCULAR HGB CONC 34 g/dL (32-36); MEAN CORPUSCULAR VOLUME 97 fL (80-99); MEAN PLATELET VOLUME 12.1 fL (9.0-12.2); MONOCYTES # (AUTO) 0.7 10^3/uL (0.0-1.0); MONOCYTES % (AUTO) 8 % (0-12); NEUTROPHILS # (AUTO) 4.6 10^3/uL (1.8-7.8); NEUTROPHILS % (AUTO) 54 % (42-75); PLATELET COUNT 186 10^3/uL (130-400); WHITE BLOOD COUNT 8.6 10^3/uL (4.3-11.0)
[2022-12-08 14:34] LABS: POTASSIUM 4.2 MMOL/L (3.6-5.0)
[2022-12-08 14:35] LABS: CALCIUM 9.5 MG/DL (8.5-10.1)
[2022-12-08 14:39] LABS: CREATININE SERUM 0.85 MG/DL (0.60-1.30)
--- NOTE | 2022-12-08 14:41 | Diagnostic Imaging Report ---
PROCEDURE: US Venous Lower Ext Vick. TECHNIQUE: Multiple real-time grayscale images were obtained over the lower extremities in various projections, bilaterally. Additional duplex Doppler and color Doppler images were also obtained. INDICATION: Bilateral lower extremity pain and edema. COMPARISON: None. FINDINGS: The bilateral common femoral vein, femoral vein, deep femoral vein, and popliteal vein are normal in appearance. These vessels show normal compressibility, color flow and doppler augmentation. The visualized deep calf veins demonstrate no distinct intraluminal thrombus. IMPRESSION: 1. No sonographic evidence of deep venous thrombosis in the bilateral lower extremities. Dictated by: Dictated on workstation # [id number]
[2022-12-08 14:46] LABS: ERYTHROCYTE SEDIMENTATION RATE 14 MM/HR (0-30)
[2022-12-08 15:16] VITALS: BP 143/65
== END 2022-12-08 15:14 | disposition home or self-care (01) ==
LOC: EDUNIT# 13:10 → ER 13:13
DX: R60.0 Localized edema (principal); I73.00 Raynaud's syndrome without gangrene; F17.210 Nicotine dependence, cigarettes, uncomplicated
CPT/HCPCS: 36415; 80048; 85025; 85652; 86141; 93970